=== PATIENT | female | born 1975 | race Caucasian/White ===

== ENCOUNTER 2024-02-29 14:53 | Emergency (ER) | payer BC, SELFPAY ==
[2024-02-29 15:12] VITALS: BP 133/76; PULSE 87; RESP 17; TEMP 36.7; O2SAT 100
--- NOTE | 2024-02-29 15:16 | ED_ITS ---
HPI - URI/Sore Throat General Chief Complaint: Upper Respiratory Infection Stated Complaint: sore throat Time Seen by Provider: 02/29/24 15:16 Source: patient, RN notes reviewed and old records reviewed Mode of arrival: ambulatory Limitations: no limitations and altered mental status History of Present Illness HPI Narrative: patient presents with complaints of sore throat for 10 days. Patient declines to say if she has been taking anything for her symptoms specifically, or just taking meloxicam as usual. She reports that she has not had a fever, over the past couple of days she reports that she has been more tired than usual and had slight headache. This is what made her decide to come in today. No drooling or stridor, she is able to manage own secretions. She denies any injury or trauma. She voices no other concerns or complaints at this time. Related Data Home Medications ?Medication ?Instructions ?Recorded ?Confirmed ?Last Taken ?Type albuterol sulfate 90 mcg/actuation inhalation 02/29/24 Unknown History aerosol inhaler azelastine 137 mcg (0.1 %) nasal intranasal 02/29/24 Unknown History spray baclofen 10 mg tablet mg 02/29/24 Unknown History drospirenone (contraceptive) 4 mg 02/29/24 Unknown History (28) tablet (Slynd) fluoxetine 20 mg tablet mg 02/29/24 Unknown History fluticasone 250 mcg-salmeterol 50 inhalation 02/29/24 Unknown History mcg/dose blistr powdr for inhalation (Wixela Inhub) fluticasone propionate 50 intranasal 02/29/24 Unknown History mcg/actuation nasal spray,suspension losartan 25 mg tablet mg 02/29/24 Unknown History meloxicam 7.5 mg tablet mg 02/29/24 Unknown History montelukast 10 mg tablet mg 02/29/24 Unknown History omeprazole 20 mg capsule,delayed mg 02/29/24 Unknown History release omeprazole 40 mg capsule,delayed mg 02/29/24 Unknown History release oxybutynin chloride 10 mg mg PO 02/29/24 Unknown History tablet,extended release 24 hr trazodone 50 mg tablet mg 02/29/24 Unknown History Allergies Allergy/AdvReac Type Severity Reaction Status Date / Time Sulfa (Sulfonamide Allergy Mild rash Verified 02/29/24 15:16 Antibiotics) Review of Systems Review of Systems: All systems reviewed & are unremarkable except as noted in HPI and below Constitutional: Constitutional: Reports as per HPI, Reports no additional co nstitutional complaints, Reports headache(s) and Reports lethargy ENT: Reports system reviewed and no additional complaints, except as documented and Reports sore throat Cardiovascular: Cardiovascular: Reports no additional cardiovascular complaints Respiratory: Respiratory: Reports no additional respiratory complaints Gastrointestinal: Gastrointestinal: Reports no additional gastrointestinal complaints PMFSH Comments At the time of my signature, I reviewed and agree with the nursing past medical, surgical, social, and family history. There is no relevant family history pertinent to the patient complaint. Exam Const: General: cooperative, no acute distress, alert and awake Orientation/consciousness: oriented to person, oriented to place and oriented to time HENMT: Head: normal to inspection Mouth: Yes moist mucous membranes Throat: posterior oropharynx abnormal erythema Resp: Effort & Inspection: normal respiratory effort and able to speak in complete sentences Auscultation: clear to auscultation bilaterally, no crackles, no rales, no rhonchi and no wheezes Cardio: Palpation: normal PMI Rate: regular rate Rhythm: regular rhythm Heart sounds: S1 normal heart sound present and S2 normal heart sound present Neuro: General: oriented to person, oriented to place and oriented to time Cranial nerves: Yes CN's II-XII intact bilaterally Psych: Appearance: grossly normal Thought process: Normal thought process present Insight: Good insight present (Psych) Judgement: Good judgement present (Psych) Course Course Level of Care: Express Care Visit Vital Signs Vital signs: Vital Signs Temperature 98.1 F 02/29/24 15:12 Pulse Rate 87 02/29/24 15:12 Respiratory Rate 17 02/29/24 15:12 Blood Pressure 133/76 02/29/24 15:12 Pulse Oximetry 100 02/29/24 15:12 Oxygen Delivery Room Air 02/29/24 15:12 Temperature 98.1 F 02/29/24 15:12 Pulse Rate 87 02/29/24 15:12 Respiratory Rate 17 02/29/24 15:12 Blood Pressure 133/76 02/29/24 15:12 Pulse Oximetry 100 02/29/24 15:12 Oxygen Delivery Room Air 02/29/24 15:12 Reviewed MDM - URI/Sore Throat MDM Narrative Medical decision making narrative: Her positive rapid strep. Patient nontoxic appearing. Stable for discharge home on p.o. antibiotic therapy. Discharge instructions reviewed with patient, as well as provided in writing per nursing staff. The instructions also include specific and strict return/GO TO THE ER as well as f/u information. All questions have been answered, and the patient deny any further questions with discharge and discharge plan. Some parts of this dictation were generated by voice recognition software and may contain typographical and/or grammatical inaccuracies. Differential Diagnosis Differential diagnosis: Likely upper respiratory infection, otitis media, sinusitis, viral infection, influenza and pharyngitis Medical Records Attestation: I reviewed the patient's medical records. Lab Data Attestation: I reviewed the patient's lab results. Discharge Plan Discharge Clinical Impression: Pharyngitis Qualifiers: Pharyngitis/tonsillitis etiology: streptococcus Qualified Code(s): J02.0 - Streptococcal pharyngitis Patient Disposition: Home, Self-Care Condition: Stable Instructions: Antibiotic Form, Strep Throat (ED) Additional Instructions: Take medications as prescribed. Follow with primary care provider. Emergency department for new or worse symptoms Patient Language: Prydeinig Prescriptions: New penicillin V potassium 500 mg tablet 500 mg PO Q12H 10 Days Qty: 20 0RF No Action fluticasone propion-salmeterol [Wixela Inhub] 250-50 mcg/dose blister with device INHALATION trazodone 50 mg tablet oxybutynin chloride 10 mg tablet extended release 24hr PO omeprazole 40 mg capsule,delayed release(DR/EC) meloxicam 7.5 mg tablet baclofen 10 mg tablet fluoxetine 20 mg tablet losartan 25 mg tablet omeprazole 20 mg capsule,delayed release(DR/EC) montelukast 10 mg tablet azelastine 137 mcg (0.1 %) spray,non-aerosol INTRANASAL albuterol sulfate 90 mcg/actuation HFA aerosol inhaler INHALATION fluticasone propionate 50 mcg/actuation spray,suspension INTRANASAL Slynd 4 mg (28) tablet Follow-up/Referrals: Neel,Kathrin Carranza MD [Primary Care Provider] - 2 Weeks Stand Alone Forms: Work/School Release IP Time of Disposition: 15:22
[2024-02-29 15:22] LABS: EDSTREPNEGPOS1 Positive (Negative)
== END 2024-02-29 15:23 | disposition home or self-care (01) ==
PROVIDERS: Emergency Provider Nurse Practitioner Family; PCP Family Medicine
DX: J02.0 Streptococcal pharyngitis (principal); I10 Essential (primary) hypertension; E78.00 Pure hypercholesterolemia, unspecified; J45.909 Unspecified asthma, uncomplicated; K21.9 Gastro-esophageal reflux disease without esophagitis; M19.90 Unspecified osteoarthritis, unspecified site
CPT/HCPCS: 87880; 99213; G0463

== ENCOUNTER 2024-03-08 10:54 | Emergency (ER) | payer BC, SELFPAY ==
[2024-03-08 11:09] VITALS: BP 133/65; PULSE 84; RESP 18; TEMP 36.4; O2SAT 100
--- NOTE | 2024-03-08 11:15 | ED.URI ---
HPI - URI/Sore Throat General Chief Complaint: Upper Respiratory Infection Stated Complaint: congestion Time Seen by Provider: 03/08/24 11:15 Source: patient, RN notes reviewed and old records reviewed Mode of arrival: ambulatory Limitations: no limitations History of Present Illness HPI Narrative: Patient in the process of being treated for strep throat presents with complaints of worsening productive cough, lack of energy, and just feeling worse. She reports that although her throat does not hurt as badly,She feels worse in just about every other way. She does report that household member was diagnosed with atypical pneumonia a few days ago Related Data Home Medications ?Medication ?Instructions ?Recorded ?Confirmed ?Last Taken ?Type albuterol sulfate 90 mcg/actuation inhalation 02/29/24 Unknown History aerosol inhaler azelastine 137 mcg (0.1 %) nasal intranasal 02/29/24 Unknown History spray baclofen 10 mg tablet mg 02/29/24 Unknown History drospirenone (contraceptive) 4 mg 02/29/24 Unknown History (28) tablet (Slynd) fluoxetine 20 mg tablet mg 02/29/24 Unknown History fluticasone propionate 50 intranasal 02/29/24 Unknown History mcg/actuation nasal spray,suspension losartan 25 mg tablet mg 02/29/24 Unknown History meloxicam 7.5 mg tablet mg 02/29/24 Unknown History montelukast 10 mg tablet mg 02/29/24 Unknown History omeprazole 40 mg capsule,delayed mg 02/29/24 Unknown History release oxybutynin chloride 10 mg mg PO 02/29/24 Unknown History tablet,extended release 24 hr trazodone 50 mg tablet mg 02/29/24 Unknown History Allergies Allergy/AdvReac Type Severity Reaction Status Date / Time Sulfa (Sulfonamide Allergy Mild rash Verified 03/08/24 11:26 Antibiotics) Review of Systems Review of Systems: All systems reviewed & are unremarkable except as noted in HPI and below Constitutional: Constitutional: Reports no additional constitutional complaints, Reports fever(s), Reports headache(s) and Reports lethargy ENT: Reports system reviewed and no additional complaints, except as documented and Reports sore throat (Improving) Cardiovascular: Cardiovascular: Reports no additional cardiovascular complaints Respiratory: Respiratory: Reports no additional respiratory complaints, Reports change in phlegm color, Reports chest congestion and Reports cough Gastrointestinal: Gastrointestinal: Reports no additional gastrointestinal complaints PMFSH Comments At the time of my signature, I reviewed and agree with the nursing past medical, surgical, social, and family history. There is no relevant family history pertinent to the patient complaint. Exam Const: General: cooperative, no acute distress, alert and awake Orientation/consciousness: oriented to person, oriented to place and oriented to time HENMT: Head: normal to inspection Ears: TM's normal bilaterally Mouth: Yes moist mucous membranes Throat: posterior oropharynx abnormal erythema Resp: Effort & Inspection: normal respiratory effort and able to speak in complete sentences Auscultation: clear to auscultation bilaterally, no crackles, no rales, no rhonchi and no wheezes Cardio: Palpation: normal PMI Rate: regular rate Rhythm: regular rhythm Heart sounds: S1 normal heart sound present and S2 normal heart sound present Neuro: General: oriented to person, oriented to place and oriented to time Cranial nerves: Yes CN's II-XII intact bilaterally Psych: Appearance: grossly normal Thought process: Normal thought process present Insight: Good insight present (Psych) Judgement: Good judgement present (Psych) Course Course Level of Care: Express Care Visit Vital Signs Vital signs: Vital Signs Temperature 97.6 F 03/08/24 11:09 Pulse Rate 84 03/08/24 11:09 Respiratory Rate 18 03/08/24 11:09 Blood Pressure 133/65 03/08/24 11:09 Pulse Oximetry 100 03/08/24 11:09 Oxygen Delivery Room Air 03/08/24 11:09 Temperature 97.6 F 03/08/24 11:09 Pulse Rate 84 03/08/24 11:09 Respiratory Rate 18 03/08/24 11:09 Blood Pressure 133/65 03/08/24 11:09 Pulse Oximetry 100 03/08/24 11:09 Oxygen Delivery Room Air 03/08/24 11:09 Reviewed MDM - URI/Sore Throat MDM Narrative Medical decision making narrative: patient nontoxic appearing. Stable for discharge home on p.o. antibiotic therapy. She is already being treated for strep, add azithromycin to cover atypical pneumonia. Other member of household has this, patient now with symptoms Discharge instructions reviewed with patient, as well as provided in writing per nursing staff. The instructions also include specific and strict return/GO TO THE ER as well as f/u information. All questions have been answered, and the patient deny any further questions with discharge and discharge plan. Some parts of this dictation were generated by voice recognition software and may contain typographical and/or grammatical inaccuracies. Differential Diagnosis Differential diagnosis: Likely upper respiratory infection, otitis media, sinusitis, viral infection, bronchitis, influenza and pharyngitis Medical Records Attestation: I reviewed the patient's medical records. Lab Data Attestation: I reviewed the patient's lab results. Discharge Plan Discharge Clinical Impression: Atypical pneumonia Patient Disposition: Home, Self-Care Condition: Stable Instructions: Antibiotic Form, Community Acquired Pneumonia (ED) Additional Instructions: Take medications as prescribed. Follow with primary care provider. Emergency department for new or worse symptoms Patient Language: Dominican Prescriptions: New azithromycin 250 mg tablet See Rx Instructions PO .COMPLEX Qty: 6 0RF Rx Instructions: For 250 mg dose pack: take 500 mg today (day 1), then 250 mg for 4 days (days 2-5) prednisone 50 mg tablet 50 mg PO DAILY Qty: 5 0RF No Action trazodone 50 mg tablet oxybutynin chloride 10 mg tablet extended release 24hr PO omeprazole 40 mg capsule,delayed release(DR/EC) meloxicam 7.5 mg tablet baclofen 10 mg tablet fluoxetine 20 mg tablet losartan 25 mg tablet montelukast 10 mg tablet azelastine 137 mcg (0.1 %) spray,non-aerosol INTRANASAL albuterol sulfate 90 mcg/actuation HFA aerosol inhaler INHALATION fluticasone propionate 50 mcg/actuation spray,suspension INTRANASAL Slynd 4 mg (28) tablet penicillin V potassium 500 mg tablet 500 mg PO Q12H 10 Days Qty: 20 0RF Follow-up/Referrals: Neel,Kathrin Carranza MD [Primary Care Provider] - 2 Weeks Time of Disposition: 11:33
== END 2024-03-08 11:36 | disposition home or self-care (01) ==
PROVIDERS: Emergency Provider Nurse Practitioner Family; PCP Family Medicine
DX: J18.9 Pneumonia, unspecified organism (principal)
CPT/HCPCS: 99213; G0463

== ENCOUNTER 2024-04-23 08:05 | Emergency (ER) | payer BC, SELFPAY ==
--- OUTSIDE RECORDS SUMMARY | 2024-04-23 08:19 | XMS_ITS | Data Portability ---
Author Organization [employer] , [facility] Address [address] [place] [address] Care Team Providers Care Operational Trainer Name Role Phone YASMINE TURNER Primary Care Provider [phone] Assessment No assessment recorded. Plan of Treatment Reminders Order Date Submit Date Provider Last Modified By Organization Details Last Modified Time Details Appointments None record ed. Lab FSH (folli joanna-st imulat ing hormon e), serum 2022 023 [facility], [address] [place], [address], 3 06:20:05 estrad iol, serum 2022 023 [facility], [address] [place], [address], 3 06:20:05 biopsy , tissue - endome trial biopsy 2022 023 [facility], [address] [place], [address], 3 18:58:10 HPV E6+E7 mRNA, qualit ative PCR, cervix 2023 024 [facility], [address] [place] [address], [address], 4 15:26:12 pap, LB 2023 024 [facility], [address] [place], [address], 4 09:55:23 Referral None record ed. Procedures None record ed. Surgeries None record ed. Imaging US, transv aginal 2022 023 NESHA Not available 3 18:22:07 MAMMO, screen ing, digita l, bilate ral [facility], [address] [place], [address], 15:30:54 Medication Orders Veronica 24 Fe 1 mg-20 mcg (24)/7 5 mg (4) tablet 2022 023 kevin [facility], [facility], [place], [address], 3 11:05:45 Slynd 4 mg (28) tablet 2022 023 [facility], [address] [place] [address], [address], 3 10:55:54 Slynd 4 mg (28) tablet 2023 024 [facility], [facility], [place], [address], 4 12:02:23 Patient TargetsNo targets recorded. Patient Instructions Encounter Date Encounter Id Patient Instructions Last Modified By Organization Details Last Modified Time 10/04/2022 [id number] endometrial biopsy information [email or web address] Not available 10/04/2022 10:45:21 12/02/2023 [id number] body mass index: care instructions Not available 12/02/2023 12:02:20 A healthy lifestyle: care instructions Not available 12/02/2023 12:02:21 substance use disorder: care instructions Not available 12/02/2023 12:02:21 calcium and vitamin D combination Not available 12/02/2023 12:02:20 depression (wome n only) Not available 12/02/2023 12:02:21 eating healthy foods: care instructions Not available 12/02/2023 12:02:21 exercise program : getting started Not available 12/02/2023 12:02:21 mammogram: about this test Not available 12/02/2023 12:02:21 control counseling Not available 12/02/2023 12:02:21 Reason for Referral None Reported. Results Created Date Observation Date Name Description Value Unit Range Abnormal Flag Note LastModifiedBy Organization Detail LastModifiedTime 08/07/1908/06/2022 FSH FSH 54.0 mIU/m L normal Refer ence Range Folli cular Phase 2.5-1 0.2 Mid-c ycle Peak 3.1-1 7.7 Lutea l Phase 1.5- 9.1 Postm enopa usal 23.0- 116.3 Not Available [employer] [facility] [address] [place], [address], 08/06/2022 06:20:05 08/07/19 23 08/06/2022 ESTRA DIOL estradiol 19 pg/mL normal Refer ence Range Folli cular Phase : 19-14 4 Mid-C ycle: 64-35 7 Lutea l Phase : 56-21 4 Postm enopa usal: < or = 31 Refer ence range estab lishe d on post- puber genesis patie nt popul ation . No pre-p ubert al refer ence range estab lishe d using this assay . For any patie nts for whom low Estra diol level s are antic ipate d (e.g. males , pre-p ubert al child sharmaine and hypog onada l/pos t-men opaus al femal es), the [facility] Estra diol, Ultra sensi tive, LCMSM S assay is recom dionte d (orde r code 06843 ). Pleas e note: patie nts being treat ed with the drug fulve stran t (Fasl odex( R)) have demon strat ed signi fican t inter feren ce in immun oassa y metho ds for estra diol measu remen t. The cross react ivity could lead to false ly eleva sosa estra diol test resul ts leadi ng to an inapp ropri ate clini sivan asses sment of estro gen statu s. [facility] order code 41904 -Estr adiol , Ultra sensi tive LC/MS /MS demon strat es negli gible cross react ivity with fulve stran t. NO COLLE CTION DATE RECEI KIRA. WE HAVE USED THE DATE THE SPECI MEN WAS RECEI KIRA BY THIS LABOR ATORY THE COLLE CTION DATE. IF THIS IS INCOR RECT, PLEAS E CONTA CT CLIEN T SERVI STEPHEN. PHONE NUMBE R: [phone] Not Available [employer] [place] [address] [place], [address], 08/06/2022 06:20:05 10/08/1910/07/2022 TISSU E PATHO LOGY clinical information Postm enopa usal bleed ing Not Available [employer] [address] [place] [address] [place], [address], 10/07/2022 18:58:10 10/08/19 23 10/07/2022 TISSU E PATHO LOGY pathologist Amy sanders MD Board Certi fied in Anato vasu Patho logy and Clini sivan Patho logy [phone] (elec troni c signa ture) Not Available [employer] [place] [address] [place], [address], 10/07/2022 18:58:10 10/08/1910/07/2022 TISSU E PATHO LOGY A source Endom etriu m, biops y Not Available [employer] [address] [place] [address] [place], [address], 10/07/2022 18:58:10 10/08/19 23 10/07/2022 TISSU E PATHO LOGY A gross description Speci men is recei kira in 10% neutr al buffe red forma bigg, label ed with multi ple patie nt ident ifier s and consi sts of multi ple fragm ents of soft tissu e aggre gatin g to 2.5 x 1.5 x 0.2 cm, irreg ular in shape and mathis-b rown in color . The speci men is entir oswaldo submi tted in one casse tte. Gross exam( s) perfo rmed at: [facility] [place] [address] [facility] [address], [place] [address] Labor atory Direc tor: GAIL Schmitt MD Not Available [employer] [place] [address] [place], [address], 10/07/2022 18:58:10 10/08/19 23 10/07/2022 TISSU E PATHO LOGY A diagnosis Mildl y and focal ly disor dered proli ferat andrews endom etriu m. Not Available [employer] [facility] [address] [place], [address], 10/07/2022 18:58:10 10/08/19 23 10/07/2022 TISSU E PATHO LOGY A comment No evide nce of polyp , hyper plasi a or malig maggi in the speci men submi tted. Clini sivan corre latio n/fol low-u p is recom dionte d. NO COLLE CTION DATE RECEI KIRA. WE HAVE USED THE DATE THE SPECI MEN WAS RECEI KIRA BY THIS LABOR ATORY THE COLLE CTION DATE. IF THIS IS INCOR RECT, PLEAS E CONTA CT CLIEN T SERVI STEPHEN. PHONE NUMBE R: [phone] Not Available [employer] [facility] [address] [place], [address], 10/07/2022 18:58:10 12/02/19 24 12/05/2023 HPV HIGH RISK HPV high risk Negati ve negati ve normal The HPV High Risk assay is inten ded for use as co-te sting with cytol ogy and not as a subst itute for regul ar cervi sivan cytol ogy scree samantha. This assay is not inten ded for use as a scree samantha devic e for women under age 30 with scotty l cervi sivan cytol ogy. Not Available [facility] [address] [place], [address], 12/05/2023 15:26:11 12/02/19 24 12/07/2023 THINP REP TIS PAP clinical information: normal None given Not Available [employer] [place] [address] [place], [address], 12/07/2023 09:55:23 12/02/19 24 12/07/2023 THINP REP TIS PAP LMP: normal NONE GIVEN Not Available [facility] [place] [address] [place], [address], 12/07/2023 09:55:23 12/02/19 24 12/07/2023 THINP REP TIS PAP prev. Pap: normal NONE GIVEN Not Available [facility] [place] [address] [address] [place], [address], 12/07/2023 09:55:23 12/02/19 24 12/07/2023 THINP REP TIS PAP prev. BX: normal NONE GIVEN Not Available [place] [address] [address] [place], [address], 12/07/2023 09:55:23 12/02/19 24 12/07/2023 THINP REP TIS PAP source: normal Cervi x Not Available [employer] [place] [address] [place], [address], 12/07/2023 09:55:23 12/02/19 24 12/07/2023 THINP REP TIS PAP statement of adequacy: normal Satis facto ry for evalu ation . Endoc ervic al/tr ansfo rmati on zone compo nent prese nt. Age and/o r menst rual statu s not provi ded Not Available [place] [address] [place], [address], 12/07/2023 09:55:23 12/02/1912/07/2023 THINP REP TIS PAP interpretati on/result: normal Cytol ogy Resul ts: Negat andrews for intra epith elial lesio n or malig maggi . Not Available [place] [address] [place], [address], 12/07/2023 09:55:23 12/02/19 24 12/07/2023 THINP REP TIS PAP comment: normal This Pap test has been evalu ated with compu king techn ology . Not Available [place] [address] [place], [address], 12/07/2023 09:55:23 12/02/1912/07/2023 THINP REP TIS PAP cytotechnolo gist: normal PCM, CT( CP) CT Scree samantha Locat ion: [place] [address] [place] [address] Not Available [place] [address] [place], [address], 12/07/2023 09:55:23 12/02/1912/07/2023 THINP REP TIS PAP comment EXPLA NATOR Y NOTE: The Pap is a scree samantha test for cervi sivan cance r. It is not a diagn ostic test and is subje ct to false negat andrews and false posit andrews resul ts. It is most relia ble when a satis facto ry sampl e, regul margarita obtai marcella, is submi tted with relev ant clini sivan findi ngs and histo ry, and when the Pap resul t is evalu ated along with histo yas and curre nt clini sivan infor matio n. Not Available [address] [address] [place], [address], 12/07/2023 09:55:23 11/04/19 23 11/03/2022 US, trans vagin al No observ ation record ed. [email or web address] [address], [place], [address], 11/04/2022 10:16:23 03/09/20 24 03/09/2024 MAMMO , scree samantha, tomos ynthe sis, bilat eral This is a summar y report . The comple te report is availa ble in the patien t's medica l record . If you cannot access the medica l record , please contac t the sendin g organi [facility] for a detail ed fax or copy. [facility] [address] [place] [address] [phone] Examin ation: Screen ing bilate ral mammog megan Exam Date: 2023 12:56 PM Access ion: [id number] Clinic al histor y: Routin e screen ing. Family histor y of breast cancer in her grandm other. Compar kayleen: 2022, 2020 Techni que: Digita l screen ing mammog patrick of both breast s was perfor med. Breast tomosy nthesi s acquis itions were obtain ed and review ed. This study was read with the assist ance of a arGEN-X er-aid ed detect ion system . Tissue densit y: There are scatte red areas of fibrog landul ar densit y. Findin gs: No suspic ious masses , malign ant appear ing calcif icatio ns, skin thicke samantha or other abnorm alitie s are presen t. No signif icant change from the prior exam. IMPRES CHASTITY: No suspic ious mammog raphic findin gs. Recomm endati on: 1. Routin e Screen ing, Bilate ral Assess ment: ACR BI-RAD S 1 - NEGATI VE Ordere d By: ANNITA BRAUN Electr onical ly Signed By: David Cardozo MD on 2023 1:23 PM Interp reted By: David Cardozo MD, 2023 1:13 PM [email or web address], [address], 03/10/2024 14:23:18 Result Notes None recorded. Procedures Surgical History Date Name Laterality Status Provider Name and Address Organization Details Recorded Time 03/09/20 Most Recent Mammogram completed DULCE RIVAS, [employer] [address] [place], [address], [facility] 03/10/2024 14:23:03 10/27/19 Date of Last Colonoscopy completed Sandrita Giles [facility] 12/02/2023 11:34:58 10/05/19 Endometrial Biopsy completed ABDULAZIZ MARIA DO [address] [place], [address], [facility] - [facility] 10/04/2022 10:45:16 11/06/19 Date of Last [facility] 03/09/2022 10:52:57 removal of pilonidal cyst completed Radha [place] [facility] 03/09/2022 10:51:42 insertion of ureteral stent with ureterotomy completed Gabby Hdz [facility] 03/10/2022 09:26:00 Imaging Results Imaging Date Name Status LastModified by Organization Details LastModified Time 11/03/2022 US, transvaginal completed [email or web address], [place], [address], 11/04/2022 10:16:23 03/09/2024 MAMMO, screening, tomosynthesis, bilateral completed [email or web address], [address], 03/10/2024 14:23:18 Procedure Notes None recorded. Medical Equipment None Reported. Allergies Allergen ID Allergen Name Allergen Category Reaction Reaction Severity Criticality Documentation Date Start Date Code Code System Note Provider Name and Address Organization Details Recorded Time 227168 Substance with sulfonami de structure and antibacte rial mechanism of action (substanc e) medicatio n Not available Not available Not available 01/02/20212019 68484 8003 SNOMED Sever ity: Moder ate; Not Available Not Available Not Available 677203 house dust allergeni c extract environme nt,medica tion Not available Not available Not available 08/03/2022 13748 9 RxNorm Not Available Not Available Not Available 596744 cat dander environme nt Not available Not available Not available 08/03/2022 81129 UNK Not Available Not Available Not Available 445219 Canis lupus familiari s extract environme nt Not available Not available Not available 08/03/2022 70105 4 RxNorm Not Available Not Available Not Available 347219 mold extract environme nt Not available Not available Not available 08/03/2022 85124 8 RxNorm Not Available Not Available Not Available Medications Name Sig Start Date Stop Date Status Note LastModified by Organization Details LastModified Time hydrocort isone 20mg supp Place ONE intravag inally twice WEEKLY active Not Available Not Available No t Available trazodone 50 mg tablet active Not Available Not Available Not Available cetirizin e 10 mg tablet active Not Available Not Available Not Available oxybutyni n chloride ER 10 mg tablet,ex tended release 24 hr active Not Available Not Available Not Available fluconazo le 150 mg tablet 03/10 completed Not Available Not Available Not Available benzonata te 200 mg capsule TAKE 1 CAPSULE BY MOUTH THREE TIMES DAILY UNTIL DIRECTED TO STOP 03/10 completed Not Available Not Available Not Available hydrocodo ne 5 mg-acetam inophen 325 mg tablet TAKE 1 TABLET BY MOUTH EVERY 4 HOURS NEEDED FOR ACUTE PAIN 03/10 completed Not Available Not Available Not Available fluconazo le 200 mg tablet 11/03 completed Not Available Not Available Not Available prednison e 20 mg tablet TAKE 3 TABLETS BY MOUTH EVERY MORNING FOR 3 DAYS THEN TAKE 2 TABLETS EVERY MORNING FOR 3 DAYS THEN TAKE 1 TABLET EVERY MORNING FOR 3 DAYS 03/10 completed Not Available Not Available Not Available omeprazol e 40 mg capsule,d elayed release active Not Available Not Available Not Available tramadol 50 mg tablet active Not Available Not Available Not Available ondansetr on 8 mg disintegr ating tablet DISSOLVE 1 TABLET ON THE TONGUE THREE TIMES DAILY FOR 2 DAYS NEEDED 08/03 completed Not Available Not Available Not Available nystatin- triamcino lone 100,000 unit/gram -0.1 % topical ointment apply to the affected area(s) by topical route 2 times per day 12/31 completed nystatin -triamci nolone 100,000- 0.1 unit/gra m-% Topical Ointment RxNorm: 0199656 Allow Substitu tion: True Refill Denied: No Edited by: laura hendrickson([place]t [place], Kelli ) on 01/01/20 Stopped by: laura hendrickson(Dmitriynt on, Kelli ) on 01/01/20 Not Available Not Available Not Available meloxicam 7.5 mg tablet active Not Available Not Available Not Available tamsulosi n 0.4 mg capsule 08/03 completed Not Available Not Available Not Available baclofen 10 mg tablet active Not Available Not Available Not Available cephalexi n 500 mg capsule 03/10 completed Not Available Not Available Not Available pantopraz ole 40 mg tablet,de layed release 12/01 completed Not Available Not Available Not Available Prozac 20 mg capsule take 1 capsule (20 mg) by oral route 2 times per day in the morning and at noon 03/10 completed PROzac 20 mg oral capsule RxNorm: 559444 Allow Substitu tion: False Refill Denied: No Refill DateOccu rred: 01/01/20 Edited by: marcelo ramírez(Nancy Rodríguez ) on 01/01/20 21 Stopped by: marcelo ramírez(Nancy Rodríguez ) on Not Available Not Available Not Available fluoxetin e 20 mg tablet active Not Available Not Available Not Available losartan 25 mg tablet take 1 tablet (25 mg) by oral route 2 times per day active Not Available Not Available No t Available oxybutyni n chloride ER 5 mg tablet,ex tended release 24 hr 03/10 completed Not Available Not Available Not Available omeprazol e 20 mg capsule,d elayed release 12/01 completed Not Available Not Available Not Available monteluka st 10 mg tablet active Not Available Not Available Not Available amoxicill in 400 mg/5 mL oral suspensio n SHAKE LIQUID AND TAKE 6.5 ML BY MOUTH TWICE DAILY FOR 10 DAYS. DISCARD REMAINDE R 12/01 completed Not Available Not Available Not Available azelastin e 137 mcg (0.1 %) nasal spray USE 2 SPRAYS IN EACH NOSTRIL TWICE DAILY active Not Available Not Available No t Available azithromy courtney 200 mg/5 mL oral suspensio n 12/01 completed Not Available Not Available Not Available albuterol sulfate HFA 90 mcg/actua tion aerosol inhaler active Not Available Not Available Not Available ondansetr on 4 mg disintegr ating tablet active Not Available Not Available Not Available cefdinir 300 mg capsule TAKE 2 CAPSULES BY MOUTH EVERY DAY X 10 DAYS. TAKE A PROBIOTI C WITH THIS PRESCRIP TION. 03/10 completed Not Available Not Available Not Available fluticaso ne propionat e 50 mcg/actua tion nasal spray,joseph pension USE 1 SPRAY NASALLY ONCE DAILY active Not Available Not Available No t Available amoxicill in 875 mg-potass ium clavulana te 125 mg tablet TAKE 1 TABLET BY MOUTH EVERY 12 HOURS FOR 7 DAYS 08/03 completed Not Available Not Available Not Available nabumeton e 500 mg tablet 08/03 completed Not Available Not Available Not Available amoxicill in 500 mg-potass ium clavulana te 125 mg tablet TAKE 1 TABLET BY MOUTH EVERY 12 HOURS FOR 7 DAYS OR UNTIL DIRECTED TO STOP. TAKE WITH FOOD 11/03 completed Not Available Not Available Not Available epinastin e 0.05 % eye drops active Not Available Not Available No t Available nitrofura ntoin monohydra te/macroc rystals 100 mg capsule 08/03 completed Not Available Not Available Not Available cefdinir 250 mg/5 mL oral suspensio n SHAKE LIQUID AND TAKE 7.5 ML BY MOUTH TWICE DAILY FOR 7 DAYS. DISCARD REMAINDE R 12/01 completed Not Available Not Available Not Available Flonase 11/03 completed Flonase RxNorm: 70727 Allow Substitu tion: False Refill Denied: No Refill DateOccu rred: 11/05/19 Edited by: Kelli Holloway ) on 01/01/20 Stopped by: laura hendrickson(Thornt on, Kelli ) on Not Available Not Available Not Available baclofen 03/10 completed baclofen RxNorm: 1292 Allow Substitu tion: False Refill Denied: No Refill DateOccu rred: 11/05/19 Edited by: laura hendrickson(Thornt on, Kelli ) on 01/01/20 Stopped by: laura hendrickson(Thornt on, Kelli ) on Not Available Not Available Not Available albuterol sulfate 03/10 completed albutero l sulfate RxNorm: 648372 Allow Substitu tion: False Refill Denied: No Refill DateOccu rred: 11/05/19 Edited by: laura hendrickson(Thornt on, Kelli ) on 01/01/20 Stopped by: laura hendrickson(Thornt on, Kelli ) on Not Available Not Available Not Available monteluka st 03/10 completed monteluk ast RxNorm: 138837 Allow Substitu tion: False Refill Denied: No Refill DateOccu rred: 11/05/19 Edited by: laura hendrickson(Thornt on, Kelli ) on 01/01/20 Stopped by: laura hendrickson(Thornt on, Kelli ) on Not Available Not Available Not Available nabumeton e 03/10 completed nabumeto ne RxNorm: 747129 Allow Substitu tion: False Refill Denied: No Refill DateOccu rred: 11/05/19 Edited by: laura hendrickson(Thornt on, Kelli ) on 01/01/20 Stopped by: laura hendrickson(Thornt on, Kelli ) on Not Available Not Available Not Available Zyrtec 03/10 completed ZyrTEC RxNorm: 50932 Allow Substitu tion: False Refill Denied: No Refill DateOccu rred: 11/05/19 Edited by: laura hendrickson(Thornt on, Kelli ) on 01/01/20 Stopped by: laura hendrickson(Thornt on, Kelli ) on Not Available Not Available Not Available Protonix 08/03 completed Protonix RxNorm: 425216 Allow Substitu tion: False Refill Denied: No Refill DateOccu rred: 11/05/19 Edited by: laura hendrickson(Thornt on, Kelli ) on 01/01/20 Stopped by: laura hendrickson(Thornt on, Kelli ) on Not Available Not Available Not Available Trazodone 03/10 completed traZODon e RxNorm: 47682 Allow Substitu tion: False Refill Denied: No Refill DateOccu rred: 11/05/19 Edited by: laura hendrickson(Thornt on, Kelli ) on 01/01/20 Stopped by: laura hendrickson(Thornt on, Kelli ) on Not Available Not Available Not Available Advair HFA 115 mcg-21 mcg/actua tion aerosol inhaler INHALE 2 PUFFS BY MOUTH TWICE DAILY. USE WITH SPACER active Not Available Not Available No t Available azelastin e 205.5 mcg (0.15 %) nasal spray spray 1 spray (205.5 mcg) in each nostril by intranas al route 2 timesper day 08/03 completed azelasti ne 0.15 % (205.5 mcg) Intranas al [place], Non-Aero jose RxNorm: 1557242 Allow Substitu tion: False Refill Denied: No Refill DateOccu rred: 11/05/19 Edited by: laura hendrickson(Thornt on, Kelli ) on 01/01/20 Stopped by: laura hendrickson(Thornt on, Kelli ) on Not Available Not Available Not Available sodium,po tassium,m ag sulfates 17.5 gram-3.13 gram-1.6 gram oral soln TAKE 177ML BY MOUTH EVERY 12 HOURS PER GI INSCTRUC TIONS 12/01 completed Not Available Not Available Not Available Auvi-Q 0.3 mg/0.3 mL injection , auto-inje ctor USE DIRECTED 03/10 completed Not Available Not Available Not Available Blisovi 24 Fe 1 mg-20 mcg (24)/75 mg (4) tablet TAKE 1 TABLET DAILY 11/03 completed Not Available Not Available Not Available Wixela Inhub 250 mcg-50 mcg/dose powder for inhalatio n active Not Available Not Available Not Available Slynd 4 mg (28) tablet Take 1 tablet every day by oral route. 2023 active Not Available Not Available Not Avai lable AirDuo Digihaler 12/31 completed [employer] RespiCli ck RxNorm: 6121166 Allow Substitu tion: False Refill Denied: No Refill DateOccu rred: 11/05/19 Edited by: laura hendrickson(Thornt on, Kelli ) on 01/01/20 Stopped by: laura hendrickson(Thornt on, Kelli ) on 01/01/20 Not Available Not Available Not Available Wegovy 0.25 mg/0.5 mL subcutane ous pen injector ADMINIST ER 0.25 MG UNDER THE SKIN 1 TIME A WEEK FOR 56 DAYS FOR WEIGHT LOSS 12/01 completed Not Available Not Available Not Available Wegovy 0.5 mg/0.5 mL subcutane ous pen injector ADMINIST ER 0.5 MG UNDER THE SKIN 1 TIME A WEEK 12/01 completed Not Available Not Available Not Available Vitals Date Recorded Body height Body mass index (BMI) Body weight Body temperature Systolic blood pressure Diastolic blood pressure Provider Name and Address Organization Details Last Updated DateTime 165.1 cm 42.3 kg/m2 120675. 46 g 97.7 [degF] 115 mm[Hg] 70 mm[Hg] Ofelia Yeh [facility] IV 3 15:26:51 Date Recorded Body height Body mass index (BMI) Body weight Body temperature Systolic blood pressure Diastolic blood pressure Provider Name and Address Organization Details Last Updated DateTime 165.1 cm 42.3 kg/m2 499767. 9 g 97 [degF] 120 mm[Hg] 70 mm[Hg] Sandrita Giles [employer] IV 3 10:08:13 Date Recorded Body height Body mass index (BMI) Body weight Systolic blood pressure Diastolic blood pressure Provider Name and Address Organization Details Last Updated DateTime 11/03/2022 165.1 cm 42.3 kg/m2 496647. 46 g 130 mm[Hg] 80 mm[Hg] Gabby Chenjessica [employer] [facility] IV 3 11:08:54 Date Recorded Body height Body mass index (BMI) Body weight Systolic blood pressure Diastolic blood pressure Provider Name and Address Organization Details Last Updated DateTime 11/09/2022 165.1 cm 42 kg/m2 074207.4 3 g 122 mm[Hg] 78 mm[Hg] Mariela Powell [employer] IV 3 10:19:27 Date Recorded Body height Body mass index (BMI) Body weight Body temperature Systolic blood pressure Diastolic blood pressure Provider Name and Address Organization Details Last Updated DateTime 4 165.1 cm 43.4 kg/m2 392052. 89 g 95 [degF] 140 mm[Hg] 80 mm[Hg] Sandrita Giles [employer] 4 11:40:40 Social History Question Answer Notes LastModified by Organizat ion Details LastModified Time Tobacco Smoking Status Former Smoker Gabby Wilder null, [employer] 03/10/2022 09:24:57 What Is Your Level Of Alcohol Consumption? Occasional Information not available 03/10/2022 How Many Times Per Week Do You Consume Alcohol? Less Than 1 Time Per Week Information not available 12/02/2023 How Many Years Have You Consumed Alcohol? 27 Information not available 08/03/2022 Are You Blind Or Do You Have Difficulty Seeing? No [email or web address] Information not available 08/03/2022 Are You Deaf Or Do You Have Serious Difficulty Hearing? No Information not available 08/03/2022 What Type Of Diet Are You Following? GLUTENFREE Information not available 03/10/2022 Do You Or Have You Ever Used E-cigarettes Or Vape? Never Used Electronic Cigarettes [email or web address] Information not available 08/03/2022 When Did You Quit Smoking? 11-15yearssinc elastcigarette [email or web address] Information not available 08/03/2022 How Many Children Do You Have? 0 Information not available 08/03/2022 What Is Your Relationship Status? [email or web address] Information not available 08/03/2022 Are You Sexually Active? No Information not available 03/10/2022 How Much Tobacco Do You Smoke? 1 PPW Information not available 12/02/2023 Do You Use Any Illicit Or Recreational Drugs? No [email or web address] Information not available 08/03/2022 How Many Years Have You Smoked Tobacco? 18 Information not available 12/02/2023 Do You Or Have You Ever Used Any Other Forms Of Tobacco Or Nicotine? No [email or web address] Information not available 08/03/2022 Sex: Unknown Functional Status Question Answer Note LastModified by Organizat ion Details LastModified Time What is your exercise level? Occasional Information not available 08/03/2022 Mental Status None recorded. Family History Relationship Description Onset Age of this Age Resolved Age Notes LastModified by Organization Details LastModified Time Father No current problems or disability [email or web address] Not available 10/13 10:21:03 Mother No current problems or disability [email or web address] Not available 10/13 10:21:03 Medical History Condition Response High Blood Pressure Y Depression Y Anxiety Disorder N Arthritis Y Seasonal allergies Y IBS (Irritable Bowel Syndrome) Y Headaches/migraines Y GERD (reflux) Y Asthma Y Chicken Pox Y Gynecological History Statement/Question Response Date of Last Colonoscopy 10/27/2023 Flow Moderate Frequency of Cycle (Q days) 28 Date of LMP 10/20/2022 Most Recent Bone Density Date of Last Pap Smear 11/06/2019 Duration of Flow (days) 5 Most Recent Mammogram 03/09/2024 Current Control Method BCPs Age at Menarche 10 Obstetrics History GPAL:G 0 P 0 0 0 0 Past Encounters Encounter ID Performer Location Encounter Start Date Encounter Closed Date Diagnosis/Indication Diagnosis SNOMED-CT Code Diagnosis ICD10 Code Diagnosis Note [id number] ABDULAZIZ MARIA DO [facility] [address] [place] [address] 03/10/2022 09:13:26 03/10/2022 10:27:20 Gynecologic examination 99671838 Z01.419 46 y.o. here for annual exam. - Pap up to date from 2019 , discussed natural course of HPV infection, ASCCP guidelines . Plan to repeat cotesting in 2024 - Contracept andrews counseling : Discussed options including OCPs, NuvaRing, Nexplanon, hormonal and copper IUDs. Discussed risks, benefits, and side effects of each option, including risk of VTE with hormonal contracept ion and uterine perforatio n with IUD. Pt happy with COCs - Routine labs done with PCP - Mammo last year WNL, discussed option for yearly or q2 yr screening in 40s based on different guideline recommenda tions, pt without family hx, would like to proceed with q2yr screening, repeat next year - Depression screen NEG - BMI counseling , diet and exercise reviewed - RTO for annual or PRN Screening for malignant neoplasm of breast 015952834 Z12.39 Depression screening 171 334849 Z13.31 Hidradenit is suppurativa 23714705 L73.2 2 lesions noted that were healingDis cussex ppx tx w/ spironolac [place] [id number] Jazmine Devine MD [facility] [address] [place] [address] 08/03/2022 14:59:10 08/04/2022 09:55:11 Postmenopausal bleeding 45523082 N95.0 Unclear if post menopausal or not. disc that low estrogen pills may create atrophy of the endometriu m and lack of menses. Surveillan ce of oral contraception 378628836 Z30.41 [id number] ABDULAZIZ MARIA DO [facility] [address] [place] [address] 10/04/2022 09:56:58 10/04/2022 18:18:41 Postmenopausal bleeding 34426404 N95.0 N93.9 - PMB: Discussed etiologies including most commonly atony, importance of r/o hyperplasi a and cancer. RFs include age and obesity. Discussed option for office EMB versus D&C with [facility]ation in [facility]. Prefers to start with EMB. Aware that additional testing may be indicated if bleeding persists despite neg testing. [id number] GEOVANNY DE DIOS [facility] [address] [place] [address] 11/03/2022 10:36:57 11/03/2022 18:11:54 Postmenopausal bleeding 11255022 N95.0 -Pt follow up today from EMB completed and TVUS today.-Pt states she is still having some PMB. EMB completed by Dr. Maria on 10/04 that was benign however it says disordered proliferat ion, and i would like her to get an US to make sure her lining isn't thickened- per Dr. Maria's note. -TVUS today shows endometriu m mildly thickened at 0.7cm. Right ovarian simple cyst and left ovary WNL. No free fluid seen.-Cassandra ent will return next week to follow up with MD to discuss possible surgical D&C due to still mildly thickened endometriu m in the presence of PMB. Pt agreeable to plan. [id number] Annita Braun MD [facility] [address] [place] [address] 11/09/2022 10:13:50 11/09/2022 17:35:24 Menometrorrhagia 629969617 N92.1 Discussed perimenopa use and menopause today. We discussed that FSH is not diagnostic of menopause but is a guide to direct us. Best predictor of menopause is patient's family history. Discussed options for treatment of irregular bleeding including but not limited to progestin containing contracept slava. We also discussed that Hysterosco py/D&C could be performed but may only be a temporary measure in correcting bleeding. Patient would like to avoid surgery at this time if POP will control bleeding. Send Slynd to [facility] with instructio michelle on how to obtain script. 30 minutes spent reviewing history, counseling and documentat ion of today's patient visit. [id number] Annita Braun MD [facility] [address] [place] [address] 12/02/2023 11:13:12 12/02/2023 12:52:48 Gynecologic examination 64925908 Z01.419 Screening for malignant neoplasm of cervix 579306371 Z12.4 Screening for malignant neoplasm of breast 373475079 Z12.31 Depression screening 171 242418 Z13.31 refer to intake screening Surveillan ce of contraception 884933500 Z30.40 Health Concerns Section Related Observation LastModified by Organization Detai ls LastModified Time None Recorded Concern Status LastModified by Organization Details LastModified Time None Recorded Advance Directives Directive None Recorded Payers Encounter Date Sequence Insurance Name Policy Number Policy Dai Covered Member ID Dai Member ID Guarantor Name 08/03/2022 1 [place] [id number] 2 Fadumo Cotto Vinod [id number] Fadumo Vinod 10/04/2022 1 [place] [id number] 2 Fadumo Cotto Vinod [id number] Fadumo Segundotis 11/03/2022 1 [place] [id number] 2 Fadumo Cotto Vinod [id number] Fadumo Segundotis 11/09/2022 1 [place] [id number] 2 Fadumo Cotto Vinod [id number] Fadumo Vinod 12/02/2023 1 [place] [id number] 2 Fadumo Cotto Vinod [id number] Fadumo Vinod Notes Date Note Type Note Provider Name and Address Organization Details Recorded Time 08/03/2022 text/html Pt started bleed ing on 07/28/22 after not having a cycle for three years, pt said she had to wear tampons and their was blood clots with the bleeding. Pt also needs a refill on her BCP'S. Pt has had a cyst behind her clitoris and they put her on augmentin, pt says it drained and went away.She states she has not had a period in 3 yrs, but was taking ocp Jazmine Devine MD [facility] [facility], [place], [address], [employer] 09/22/2022 17:50:56 10/04/2022 text/html Patient is here for endometrial biopsy for post menapausual bleeding ABDULAZIZ MARIA DO [facility], [place], [address], [facility] [employer] 10/04/2022 10:46:10 11/03/2022 text/html Patient here for a follow up on her US which was preformed for post menopausal bleeding. DULCE RIVAS, GEOVANNY [address] [facility], [place], [address], [employer] 11/03/2022 11:55:42 11/09/2022 text/html Abnormal BleedingReported bypatient.Onset/Timin g:postmenopause Quality:moderate Associated Symptoms:abdominal pain;bloatingNotes:shay weller presents today with irregular bleeding. She has benign Endometrial biopsy in 10/06/2022. U/S with endometrial stripe of 7 mm. She has a FSH that is trending in a menopausal direction. She is here to follow up. Annita Braun MD [address] [facility], [place], [address], [facility] [employer] IV 11/11/2022 09:37:34 12/02/2023 text/html Annual GYNReport ed bypatient.History:no gynecologic complaints Menstrual cycle:patient currently dont have periods since she is on the oral b/c Urinary symptoms:No hematuria Vulva:No genital lesion Vagina:Vaginal itching Breast:No breast pain; No breast lump Current Contraception:Oral contraceptives Sexual complaints:No sexual complaints Menopausal Symptoms:No menopausal symptoms Psychological symptoms:No depression; No anxiety Preventive measures:Encourage regular exercise Fadumo is here for annual exampatient is currently taking SLYND controlpatient last pap 11/06/2019New foster son, age 12, goes to [employer], part of [employer] Annita Braun MD [address] [facility], [place], [address], [employer] 12/02/2023 12:02:29 OBGyn Episode No OBEpisode recorded.
--- OUTSIDE RECORDS SUMMARY | 2024-04-23 08:20 | XMS_ITS | Clinical Summary ---
Author Organization [facility] Address [address] [place] [address] Care Team Providers Care Yarn Packer Name Role Phone Marcus Chin MD Primary Care Provider Source Comments [facility],non-owned Affiliates and Associated Physician Practices is amultiple site organization consisting of ambulatory clinics and hospital sitesin [place], [place], [place] and [place]. This disclosure is being madepursuant to the Care Everywhere program and may not contain all information available regarding this patient. Last updated 17.[facility] Allergies Active Allergy Reactions Criticality Noted Date Comments Sulfa Drugs Itching,Nausea and/o r Vomiting,Other High 05/13/2013 When she was in her 20s Medications * Be aware that medications may not be up to date on this document. Alwaysverify current medications with the patient. Medication Sig Dispensed Refills Start Date End Date Status traZODone (DESYREL) 50 MG tablet 10/10/2019 Active montelukast (SINGULAIR) 10 MG tablet 09/06/2019 Active epinastine (ELESTAT) 0.05 % ophthalmic solution 09/06/2019 Active fluticasone propionate (FLONASE) 50 MCG/ACT nasal spray [place] 1 (one) spray to 2 (two) sprays into the nose once daily 12/12/2011 Active baclofen (LIORESAL) 10 MG tablet 08/22/2019 Active PROAIR RESPICLICK 108 (90 Base) MCG/ACT 05/23/2019 Active cetirizine (ZYRTEC) 10 MG tablet Take 1 (one) tablet by mouth once daily 12/08/2019 Active oxybutynin (DITROPAN) 5 MG tablet Take 1 (one) tablet by mouth once daily Active losartan (COZAAR) 25 MG tablet Take 1 (one) tablet by mouth once daily Active FLUoxetine HCl (PROZAC PO) Take 30 mg by mouth once daily Active MELOXICAM PO Active Other Take 1 Each by mouth once daily Taking a compounded med Slynd (progestogen only) Active omeprazole (PriLOSEC) 20 MG capsule Take 1 (one) capsule by mouth once daily 09/06/2023 Active hydrocortisone (Anusol-HC) 25 MG suppositoryIndic ations:Vaginal discharge 20 mg suppository ,Place 1 intravaginally twice weekly 24 suppository 2 09/27/2023 Active nystatin/triamci nolone (Mycolog) 452660-5.1 UNIT/GM-% ointmentIndicati ons:Acute vulvitis Use to vulvar skin, fingertip amount, topically once a day as needed for itching. 60 g 1 04/09/2024 Active Active Problems Problem Noted Date Diagnosed Date Allergic rhinitis due to animal hair and dander 06/29/2022 Mild persistent asthma without complication 06/12 Achilles tendinitis of left lower extremity 03/14 Pes planus 04/01/2020 Plantar fasciitis of right foot 04/01/2020 Headache 03/31/2020 Obesity 03/31/2020 Arthritis 10/02/2019 Allergic rhinitis 01/14/2019 IBS (irritable bowel syndrome) 01/14/2019 Onychomycosis 01/14/2019 Accommodative insufficiency 10/06/2018 Regular astigmatism 10/06/2018 Hypermetropia 05/20/2015 Asthma 12/12/2011 Overview (12/05/2019): SARINA HAWKINS MD Depressive disorder 12/12/2011 Overview (12/05/2019): SARINA HAWKINS MD Esophageal reflux 12/12/2011 Overview (12/05/2019): SARINADEMAR HAWKINS MD Encounters Date Type Department Care Team Description 04/05/2024 3:00 PM LOST AND FOUND CLERK Office Visit [facility] - DIRECTOR STATISTICAL PROGRAMMING [address] [facility] [address] [place] [address] Daisy Landis APRN-TRADE SHOW MANAGER Vulvar itching (Primary Dx); Vaginal discharge 04/05/2024 9:00 AM LOST AND FOUND CLERK - 04/05/2024 11:59 PM LOST AND FOUND CLERK Hospital Encounter [facility] Health Imaging Services - Radiology [address] [place] [address] Oscar Adler MD Discharge Disposition: Home or Self Care 04/05/2024 Travel 03/22/2024 Travel 03/16/2024 7:15 AM LOST AND FOUND CLERK Video Visit [facility] Health Weight Management Services [address], [address] [place] [address] Morbid obesity (HCC) 02/23/2024 7:00 AM LOST AND FOUND CLERK Video Visit [facility] Health Weight Management Services [address], [address] [place] [address] Morbid obesity (HCC) 02/16/2024 9:45 AM LOST AND FOUND CLERK Clinical Support [facility] Health Weight Management Services [address], [address] [place] [address] Morbid obesity (HCC) 01/27/2024 3:00 PM LOST AND FOUND CLERK Office Visit [facility] Health Weight Management Services [address], [address] [place] [address] Oscar Adler MD Morbid obesity (HCC) (Primary Dx); Gastroesophageal reflux disease with esophagitis without hemorrhage from Last 3 Months Family History Medical History Relation Name Comments Asthma Father Alzheimer's Disease Maternal Grandfather Cancer - Colon Maternal Grandfather Alzheimer's Disease Maternal Grandmother Cancer - Breast Maternal Grandmother Alcohol abuse Mother Cancer Paternal Grandfather Cancer - Breast Paternal Grandmother Relation Name Status Comments Father Alive Maternal Grandfather Maternal Grandmother Mother Paternal Grandfather Paternal Grandmother Alive Social History Tobacco Use Types Packs/Day Years Used Date Smoking Tobacco: Former Cigarettes 0.5 14 Smokeless Tobacco: Never Tobacco Cessation:Counseling Given: Not Answered Alcohol Use Standard Drinks/Week Comments Yes 0 (1 standard drink = 0.6 oz pur e alcohol) AUDIT-C Answer Date Recorded Q1: How often do you have a drink containing alc ohol? Monthly or less 12/05/2019 Q2: How many drinks containi ng alcohol do you have on a typical day when you are drinking? 1 or 2 12/05/2019 Q3: How often do you have si x or more drinks on one occasion? Never 12/05/2019 PHQ-2 Answer Date Recorded Patient Health Questionnaire-2 Score 0 04/04/2024 Sex and Gender Information Value Date Recorded Sex Assigned at Female 03/22/2024 9:30 AM LOST AND FOUND CLERK Gender Identity Not on file Sexual Orientation Not on file Last Filed Vital Signs Vital Sign Reading Time Taken Comments Blood Pressure 132/80 04/05/2024 3:13 PM LOST AND FOUND CLERK Pulse 84 01/27/2024 2:56 PM LOST AND FOUND CLERK Temperature 36.3 C (97.4 F) 01/27/2024 2:56 PM LOST AND FOUND CLERK Respiratory Rate - - Oxygen Saturation 98% 01/27/2024 2:56 PM LOST AND FOUND CLERK Inhaled Oxygen Concentration - - Weight 121.6 kg (268 lb) 04/05/2024 3:13 PM LOST AND FOUND CLERK Height 165.1 cm (5' 5 ) 04/05/2024 3:13 PM LOST AND FOUND CLERK Body Mass Index 44.6 04/05/2024 3:13 PM LOST AND FOUND CLERK Plan of Treatment Upcoming Encounters Date Type Department Care Team (Late st Contact Info) Description 04/25/2024 3:45 PM LOST AND FOUND CLERK Clinical Support [facility] Weight Management Services [address], [address] [place] [address] 10/04/2024 3:00 PM CDT [facility] - DIRECTOR STATISTICAL PROGRAMMING [address] [facility] [address] [place] [address] Daisy Landis, CONTROL MANAGER-TRADE SHOW MANAGER [address] [address] Health Maintenance Due Date Last Done Comments COLOGUARD (AGES 45-75) - COLON CA SCREENING [address] COLONOGRAPHY - COLON CA SCREENING 1973 FIT - COLON CA SCREENING 1973 FLEX SIG - COLON CA SCREENING 1973 LIPID TESTING 1973 HIV SCREENING 1988 HEPATITIS C SCREENING 07/28/1991 DTAP/TDAP/TD VACCINES (1 - Tdap) 1992 HEPATITIS B VACCINE (1 of 3 - 19+ 3-dose series) 1992 PNEUMOCOCCAL VACCINE 50+ (1 of 2 - PCV) 1992 SCREENING FOR DIABETES 12/05/2019 PAP SMEAR 10/20/2020 10/20/2017, 09/11/2010 ZOSTER VACCINE (1 of 2) 08/02/2023 COVID-19 VACCINE ( season) 2023 02/12/2022, 01/24/2021, 07/16/2020, Additional history exists INFLUENZA VACCINE (#1) 2023 , 01/24/2021, 03/14/2020, Additional history exists MAMMOGRAM 03/09/2026 03/09/2024, 02/12, 02/28/2023, Additional history exists COLONOSCOPY - COLON CA SCREENING 10/26/2033 10/27/2023 Colorectal Cancer Screening 10/26/2033 DEPRESSION SCREENING Completed 04/05/2024 HIB VACCINE Aged Out No longer eligi ble based on patient's age to complete this topic HPV VACCINE Aged Out No longer eligi ble based on patient's age to complete this topic MENINGOCOCCAL (Group B) VACCINE Aged Out No longer eligible based on patient's age to complete this topic MENINGOCOCCAL VACCINE Aged Out No isael charles eligible based on patient's age to complete this topic Procedures Procedure Name Priority Date/Time Associated Diagnosis Comments FUNGUS GEORGE - POINT OF CARE (AMB) [facility] Routine 04/05/2024 3:47 PM LOST AND FOUND CLERK Vaginal discharge WET PREP - POINT OF CARE (AMB) [facility] Routine 04/05/2024 3:46 PM LOST AND FOUND CLERK Vaginal discharge PH FLUID - POCT (AMB) [facility] Routine 04/05/2024 3:46 PM LOST AND FOUND CLERK Vaginal discharge FL UGI W AIR CONTRAST Routine 04/05/2024 9:51 AM LOST AND FOUND CLERK Gastroesophageal reflux disease with esophagitis without hemorrhage Morbid obesity (HCC) from Last 3 Months Results * FUNGUS GEORGE - POINT OF CARE (AMB) [facility] (04/05/2024 3:47 PM LOST AND FOUND CLERK) GEORGE Prep No [facility] [address] Fluid BODY FLUID SPECIMEN / Unknown 04/05/2024 3:47 PM LOST AND FOUND CLERK Daisy Landis APRN-TRADE SHOW MANAGER LAB - POINT OF CARE ORDERABLES [facility] [address] [place] [address], [facility] [phone] * PH FLUID - POCT (AMB) [facility] (04/05/2024 3:46 PM LOST AND FOUND CLERK) pH Vaginal 4.5 [facility] [address] Fluid ENTIRE VAGINA / Unknown 04/05/2024 3:46 PM LOST AND FOUND CLERK Daisy Landis APRN-TRADE SHOW MANAGER LAB - POINT OF CARE ORDERABLES [facility] [address] [place] [address], [facility] [phone] * WET PREP - POINT OF CARE (AMB) [facility] (04/05/2024 3:46 PM LOST AND FOUND CLERK) pH Wet Prep 4.[address] [facility] [address] Yeast Wet Prep no [facility] RE [address] Trichomonas Wet Prep None [facility] [address] Bacteria Wet Prep rare WBC [facility] [address] Whiff Test no [facility] [address] BODY FLUID SPECIMEN / Unknown 04/05/2024 3:46 PM LOST AND FOUND CLERK Daisy Landis CONTROL MANAGER-TRADE SHOW MANAGER LAB - POINT OF CARE ORDERABLES [facility] [address] [place] [address], [facility] [phone] * FL Ugi W Air Contrast (04/05/2024 9:51 AM LOST AND FOUND CLERK) Anatomical Region Laterality Modality Abdomen Computed Radiogr aphy Impressions 04/05/2024 10:49 AM LOST AND FOUND CLERK IMPRESSION: Small hiatal hernia and mild witnessed gastroesophageal reflux > Interpreting Provider: Roberto Funk JR, MD on 04/05/2024 10:49 AM Narrative 04/05/2024 10:49 AM LOST AND FOUND CLERK AIR CONTRAST UPPER GI INDICATION: Morbid obesity, preoperative assessment before bariatric surgery, gastroesophageal reflux, hiatal hernia FINDINGS: After having the patient ingest thin oral barium and effervescent gas crystals, cine fluoroscopy was performed of the esophagus, stomach and duodenum. Imaging was performed with the patient standing, with the patient supine, in the oblique positions, in the right lateral position, and during Valsalva maneuver. Total fluoroscopy time was 70 seconds, spot fluoroscopic images were not obtained because cine fluoroscopy was utilized and the images were saved in video format. Total fluoroscopy dose was 2.607 mgy. The esophagus is normal in contour and caliber. There is no esophageal mass, stricture or ulceration. Gastric mucosa is normal. There is no gastric mass or gastric ulceration. There is no gastric outlet obstruction. The duodenal bulb and C-loop are normal. There was mild witnessed gastroesophageal reflux and there appears to be a small hiatal hernia. Oscar Adler MD FLUOROSCOPY ORDERABL ES from Last 3 Months Care Teams Yarn Packer Relationship Specialty Start Date End Date Marcus Chin MD [address] [facility] [address] [place], [place] [address] PCP - General Family Medicine 04/05/24
--- OUTSIDE RECORDS SUMMARY | 2024-04-23 08:20 | XMS_ITS | Patient Health Summary ---
Author Organization [facility] Address [address] [place] [address] Care Team Providers Care Gold Layer Name Role Phone Marcus Chin MD Primary Care Provider Note from [facility],non-owned Affiliates and Associated Physician Practices is amultiple site organization consisting of ambulatory clinics and hospital sitesin [place], [place], [place] and [place]. This disclosure is being madepursuant to the Care Everywhere program and may not contain all information available regarding this patient. Last updated 17.[facility] Allergies * Sulfa Drugs(Itching,Nausea and/or Vomiting,Other) -High Criticality Medications * Be aware that medications may not be up to date on this document. Alwaysverify current medications with the patient. * traZODone (DESYREL) 50 MG tablet(Started 10/10/2019) * montelukast (SINGULAIR) 10 MG tablet(Started 09/06/2019) * epinastine (ELESTAT) 0.05 % ophthalmic solution(Started 09/06/2019) * fluticasone propionate (FLONASE) 50 MCG/ACT nasal spray(Started 12/12/2011) [place] 1 (one) spray to 2 (two) sprays into the nose once daily * baclofen (LIORESAL) 10 MG tablet(Started 08/22/2019) * PROAIR RESPICLICK 108 (90 Base) MCG/ACT(Started 05/23/2019) * cetirizine (ZYRTEC) 10 MG tablet(Started 12/08/2019) Take 1 (one) tablet by mouth once daily * oxybutynin (DITROPAN) 5 MG tablet Take 1 (one) tablet by mouth once daily * losartan (COZAAR) 25 MG tablet Take 1 (one) tablet by mouth once daily * FLUoxetine HCl (PROZAC PO) Take 30 mg by mouth once daily * MELOXICAM PO * Other Take 1 Each by mouth once daily Taking a compounded med Slynd (progestogen only) * omeprazole (PriLOSEC) 20 MG capsule(Started 09/06/2023) Take 1 (one) capsule by mouth once daily * hydrocortisone (Anusol-HC) 25 MG suppository(Started 09/27/2023) 20 mg suppository ,Place 1 intravaginally twice weekly 2 refills by 09/26/2024 * nystatin/triamcinolone (Mycolog) 400136-1.1 UNIT/GM-% ointment(Started 04/09/2024) Use to vulvar skin, fingertip amount, topically once a day as needed for itching. 1 refill by 04/09/2025 Active Problems Problem Noted Date Diagnosed Date [...] Regular astigmatism 10/06/2018 Hypermetropia 05/20/2015 Asthma 12/12/2011 Depressive disorder 12/12/2011 Esophageal reflux 12/12/2011 Social History Tobacco Use Types Packs/Day Years [...] Sex Assigned at Female 03/22/2024 9:30 AM INDUSTRIAL SERVICE TECHNICIAN Gender Identity Not on file Sexual Orientation Not on file Last Filed Vital Signs Vital Sign Reading Time Taken Comments Blood Pressure 132/80 04/05/2024 3:13 PM INDUSTRIAL SERVICE TECHNICIAN Pulse 84 01/27/2024 2:56 PM INDUSTRIAL SERVICE TECHNICIAN Temperature 36.3 C (97.4 F) 01/27/2024 2:56 PM INDUSTRIAL SERVICE TECHNICIAN Respiratory Rate - - Oxygen Saturation 98% 01/27/2024 2:56 PM INDUSTRIAL SERVICE TECHNICIAN Inhaled Oxygen Concentration - - Weight 121.6 kg (268 lb) 04/05/2024 3:13 PM INDUSTRIAL SERVICE TECHNICIAN Height 165.1 cm (5' 5 ) 04/05/2024 3:13 PM INDUSTRIAL SERVICE TECHNICIAN Body Mass Index 44.6 04/05/2024 3:13 PM INDUSTRIAL SERVICE TECHNICIAN Procedures * FUNGUS GEORGE - POINT OF CARE (AMB) [facility](Performed 04/05/2024) Performed for Vaginal discharge * WET PREP - POINT OF CARE (AMB) [facility](Performed 04/05/2024) Performed for Vaginal discharge * PH FLUID - POCT (AMB) [facility](Performed 04/05/2024) Performed for Vaginal discharge * FL UGI W AIR CONTRAST(Performed 04/05/2024) Performed for Gastroesophageal reflux disease with esophagitis without hemorrhage, Morbid obesity (HCC) * FUNGUS GEORGE - POINT OF CARE (AMB) [facility](Performed 09/27/2023) Performed for Vaginal discharge * WET PREP - POINT OF CARE (AMB) [facility](Performed 09/27/2023) Performed for Vaginal discharge * PH FLUID - POCT (AMB) [facility](Performed 09/27/2023) Performed for Vaginal discharge * PH FLUID - POCT (AMB) [facility](Performed 03/08/2023) Performed for Vaginal discharge * FUNGUS GEORGE - POINT OF CARE (AMB) [facility](Performed 03/08/2023) Performed for Vaginal discharge * WET PREP - POINT OF CARE (AMB) [facility](Performed 03/08/2023) Performed for Vaginal discharge * WET PREP - POINT OF CARE (AMB) [facility](Performed 06/29/2022) Performed for Vaginal discharge * PH FLUID - POCT (AMB) [facility](Performed 06/29/2022) Performed for Vaginal discharge * FUNGUS GEORGE - POINT OF CARE (AMB) [facility](Performed 06/29/2022) Performed for Vaginal discharge * WET PREP - POINT OF CARE (AMB) [facility](Performed 12/08/2021) Performed for Vaginal discharge * PH FLUID - POCT (AMB) [facility](Performed 12/08/2021) Performed for Vaginal discharge * FUNGUS GEORGE - POINT OF CARE (AMB) [facility](Performed 12/08/2021) Performed for Vaginal discharge * WET PREP - POINT OF CARE (AMB) [facility](Performed 06/02/2021) Performed for Vaginal discharge * PH FLUID - POCT (AMB) SL[facility](Performed 06/02/2021) Performed for Vaginal discharge * FUNGUS GEROGE - POINT OF CARE (AMB) [facility](Performed 06/02/2021) Performed for Vaginal discharge * WET PREP - POINT OF CARE (AMB) [facility](Performed 08/07/2020) Performed for Vaginal discharge * PH FLUID - POCT (AMB) SL[facility](Performed 08/07/2020) Performed for Vaginal discharge * FUNGUS GEORGE - POINT OF CARE (AMB) [facility](Performed 08/07/2020) Performed for Vaginal discharge * WET PREP - POINT OF CARE (AMB) [facility](Performed 03/20/2020) Performed for Vaginal discharge * PH FLUID - POCT (AMB) SL[facility](Performed 03/20/2020) Performed for Vaginal discharge * FUNGUS GEORGE - POINT OF CARE (AMB) [facility](Performed 03/20/2020) Performed for Vaginal discharge * WET PREP - POINT OF CARE (AMB) [facility](Performed 12/26/2019) Performed for Vaginal discharge * PH FLUID - POCT (AMB) SL[facility](Performed 12/26/2019) Performed for Vaginal discharge * FUNGUS GEORGE - POINT OF CARE (AMB) [facility](Performed 12/26/2019) Performed for Vaginal discharge * WET PREP - POINT OF CARE (AMB) [facility](Performed 12/05/2019) Performed for Vaginal discharge, Acute vulvitis * PH FLUID - POCT (AMB) [facility](Performed 12/05/2019) Performed for Vaginal discharge, Acute vulvitis * FUNGUS GEORGE - POINT OF CARE (AMB) [facility](Performed 12/05/2019) Performed for Vaginal discharge, Acute vulvitis * GROSS + MICRO EXAM(Performed 05/12/2001) Results * FUNGUS GEORGE - POINT OF CARE (AMB) [facility] (04/05/2024 3:47 PM INDUSTRIAL SERVICE TECHNICIAN) Only the most recent of10 resultswithin the time period is included. GEORGE Prep No [facility] [address] Fluid BODY FLUID SPECIMEN / Unknown 04/05/2024 3:47 PM INDUSTRIAL SERVICE TECHNICIAN Daisy Landis DIE CASTING MACHINE OPERATOR-SALES REPRESENTATIVE ADVERTISING LAB - POINT OF CARE ORDERABLES [facility] [address] [place] [address], [facility] [phone] * PH FLUID - POCT (AMB) [facility] (04/05/2024 3:46 PM INDUSTRIAL SERVICE TECHNICIAN) Only the most recent of10 resultswithin the time period is included. pH Vaginal 4.5 [facility] [address] Fluid ENTIRE VAGINA / Unknown 04/05/2024 3:46 PM INDUSTRIAL SERVICE TECHNICIAN Daisy Landis APRN-SALES REPRESENTATIVE ADVERTISING LAB - POINT OF CARE ORDERABLES [facility] [address] [place] [address], [facility] [phone] * WET PREP - POINT OF CARE (AMB) [facility] (04/05/2024 3:46 PM INDUSTRIAL SERVICE TECHNICIAN) Only the most recent of10 resultswithin the time period is included. pH Wet Prep 4.[address] [facility] [address] Yeast Wet Prep no [facility] [address] Trichomonas Wet Prep None [facility] [address] Bacteria Wet Prep rare WBC [facility] [address] Whiff Test no [facility] [address] BODY FLUID SPECIMEN / Unknown 04/05/2024 3:46 PM INDUSTRIAL SERVICE TECHNICIAN Daisy Landis APRN-SALES REPRESENTATIVE ADVERTISING LAB - POINT OF CARE ORDERABLES [facility] [address] [place] [address], [facility] [phone] * FL Ugi W Air Contrast (04/05/2024 9:51 AM INDUSTRIAL SERVICE TECHNICIAN) Anatomical Region Laterality Modality Abdomen Computed Radiogr aphy Impressions 04/05/2024 10:49 AM INDUSTRIAL SERVICE TECHNICIAN IMPRESSION: Small hiatal hernia and mild witnessed gastroesophageal reflux > Interpreting Provider: Roberto Funk JR, MD on 04/05/2024 10:49 AM Narrative 04/05/2024 10:49 AM INDUSTRIAL SERVICE TECHNICIAN AIR CONTRAST UPPER GI INDICATION: Morbid obesity, [...] hernia. Oscar Adler MD FLUOROSCOPY ORDERABL ES * GROSS + MICRO EXAM (05/12/2001 10:46 AM INDUSTRIAL SERVICE TECHNICIAN) Result CASE NUMBER [id number] Comment: ORDERING PHYSICIAN AMINATA LI SPECIMEN TYPE Pilonidal Cyst Date 05/12/2001 Physician Camilo Li Gross Description The specimen is received in a single formalin-filled container labeled with the patient's name and pilonidal cyst . The specimen consists of a single piece of pink-yellow fibroadipose tissue with overlying mathis skin ellipse measuring 5 x 3.5 x 2.5 cm. The skin ellipse measures 4.3 x 1.2 x 0.4 cm. The entire surgical margin is inked black. There is a linear scar on the cutaneous surface measuring 3.5 cm. in length and 0.1 cm. in width. The specimen is serially sectioned revealing a healing, slightly hemorrhagic, slightly cystic cavity measuring 1 x 0.7 x 0.3 cm. Tie Binder sections are submitted as follows cassette A, sections of the ellipse tip cassettes B and C, sections of the cyst cassette D, section away from the cyst. BR/bk Microscopic Exam Microscopic examination of sections labeled A through D reveal multiple fragments of tissue surfaced in part by a squamous epithelium that shows normal maturation. In one area the underlying tissues show a channel lined by squamous epithelium and extending into an area of marked inflammation. The inflammatory process consists of a central, poorly-defined cavity filled with polymorphonuclear leukocytes mixed with macrophages and multinucleate giant cells. No residual identifiable epithelial lining is seen in the cyst itself. The surrounding tissues show prominent fibrosis with infiltrates of lymphocytes, plasma cells and scattered eosinophils. In none of the sections is there any evidence of malignancy or atypia. Diagnosis I. Skin and subcutaneous tissue from the lower back A. Changes consistent with acutely and chronically inflamed pilonidal cyst. Air Operations Manager bk Pathologist Juice Mancilla M.D. [place]. 05/15/2001 0957 <2> CPT code 38371 MISCELLANEOUS SAMPLES / Unknown 05/12/2001 10:46 AM INDUSTRIAL SERVICE TECHNICIAN 05/12/2001 10:46 AM INDUSTRIAL SERVICE TECHNICIAN Historical Provider LAB - PATHOLOGY/C YTOLOGY ORDERABLES Care Teams Gold Layer Relationship Specialty Start Date End Date Marcus Chin MD [address] [place] [address] PCP - General Family Medicine 04/05/24
--- OUTSIDE RECORDS SUMMARY | 2024-04-23 08:20 | XMS_ITS | Clinical Summary ---
Author Organization [facility] Address [address] [place] [address] Phone Care Team Providers Care Project Estimator Name Role Phone Yasmani Simons MD Primary Care Provider [phone] Allergies Active Allergy Reactions Criticality Noted Date Comments Sulfa Antibiotics Unknown High 05/13/2013 Medications Multiple Vitamins-Minera ls (MULTIVITAL PO) Take by mouth. Activ e fluticasone (FLONASE) 50 MCG/ACT NA SUSP 1-2 Sprays by Nasal route daily. Use in each nostril as directed. Active cetirizine (ZYRTEC ALLERGY) 10 MG PO TABS Take 10 mg by mouth nightly. Active VIORELE 0.15-0.02/0.01 MG (01/08) Tablet Take 1 Tab by mouth daily. 5 Active epinastine (ELESTAT) 0.05 % Solution Place 1 Drop in both eyes daily. 6 Active Azelastine HCl (ASTEPRO) 0.15 % Solution 2 Puffs by Nasal route every 12 hours. Active PULMICORT FLEXHALER 180 MCG/ACT AEROSOL POWDER, BREATH ACTIVATED TK 2 INHALATIONS PO BID 2 8 Active montelukast (SINGULAIR) 10 MG Tablet Take 1 Tab by mouth every evening. 90 Tab 3 9 Active pantoprazole (PROTONIX) 40 MG Pack Take 40 mg by mouth daily. 90 Packet 3 9 Active triamcinolone (KENALOG) 0.1 % Cream Apply to affected areas b.i.d. 80 g 1 9 Active PROAIR RESPICLICK 108 (90 Base) MCG/ACT AEROSOL POWDER, BREATH ACTIVATED 9 Active mupirocin (BACTROBAN) 2 % OintmentIndicat ions:Abrasion of face, initial encounter Apply thin film to affected areas 3 times daily until healed. 15 g 0 Active baclofen (LIORESAL) 10 MG Tablet Take 0.5-1 Tabs by mouth 3 times daily as needed (spasm). 60 Tab 1 0 Active Fluticasone-Tobin meterol 113-14 MCG/ACT AEROSOL POWDER, BREATH ACTIVATED INL 1 PUFF PO BID 0 Active traZODone (DESYREL) 50 MG Tablet TAKE 1 TABLET NIGHTLY 90 Tab 3 1 Active nabumetone (RELAFEN) 500 MG Tablet TAKE 1 TABLET TWICE A DAY 180 Tab 3 1 Active Active Problems Problem Noted Date Diagnosed Date Asthma Allergic rhinitis Depression IBS (irritable bowel syndrome) Onychomycosis Resolved Problems Problem Noted Date Diagnosed Date Resolved Date Acute upper respiratory infection 05/30/2018 Immunizations Immunization Administration Dates Next Due Covid-19, Mrna, Lnp-s, PF, 1 00 mcg/0.5 mL Dose (Moderna) 07/16/2020,06/18/2020 Influenza Vaccine greater than 3 yrs 12/19/2018, 12/13/2017 Influenza Vaccine, Quadrivalent, PF 12/08/2015 Influenza, Seasonal, Injectable, Undefined 12/19,12/13/2017 TD VACCINE 03/14/1999 Family History Medical History Relation Name Comments Breast Cancer Maternal Grandmother Ovarian Cancer Neg Hx Relation Name Status Comments Maternal Grandmother Social History Tobacco Use Types Packs/Day Years Used Date Smoking Tobacco: Former Cigarettes 1 14 0 06/24/1994 - 06/24/2008 Smokeless Tobacco: Never Tobacco Cessation:Counseling Given: Yes Alcohol Use Standard Drinks/Week Comments Yes 0 (1 standard drink = 0.6 oz pur e alcohol) rare PHQ-2 Answer Date Recorded PHQ-2 Score 0 11/10/2018 Comments No Sex and Gender Information Value Date Recorded Sex Assigned at Not on file Legal Sex 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 Gender Identity Not on file Sexual Orientation Not on file Last Filed Vital Signs Vital Sign Reading Time Taken Comments Blood Pressure 126/74 08/14/2019 3:15 PM CDT Pulse 72 08/14/2019 3:15 PM CDT Temperature 37 C (98.6 F) 08/14/2019 3:15 PM CDT Respiratory Rate 18 08/14/2019 3:15 PM CDT Oxygen Saturation 96% 08/14/2019 3:15 PM CDT Inhaled Oxygen Concentration - - Weight 92.5 kg (204 lb) 08/14/2019 3:15 PM CDT Height 165.1 cm (5' 5 ) 08/14/2019 3:15 PM CDT Body Mass Index 33.95 08/14/2019 3:15 PM CDT Plan of Treatment Health Maintenance Due Date Last Done Comments Hepatitis C Virus (HCV) Screening 1973 TdaP Immunization 1973 Hepatitis B Immunization (1 of 3 - 19+ 3-dose series) 1992 Pneumococcal Immunization (50+ years) (1 of 2 - PCV) 1992 HPV/Cotest 09/12/2015 09/11/2010 Colonoscopy 2018 Colorectal Cancer Screening 2018 Cervical Cancer Screening (CCS) 10/20/2020 Pap Smear 10/20/2020 10/20/2017, 09/11/2010 Cologuard 08/02/2023 Immunochemical Fecal Occult Blood 08/02/2023 Mammogram 08/02/2023 09/30/2018, 09/11, 03/19/2016 Zoster Immunization (1 of 2) 08/02/2023 Influenza Immunization (#1) 2023 01/0 03/2020, 12/19/2018, 12/13/2017, Additional history exists SARS-COV-2 Immunization ( season) 2023 01/24/2021, 07/16/2020, 06/18/2020 Respiratory Syncytial Virus (RSV) Immunization (Adult) (1 - 1-dose 75+ series) 2048 DTaP/Tdap/Td Immunization Discontinued 03/14/1999 Discussion re Starting/Frequency of Mammograms Discontinued 09/30/2018, 09/22/2018, 03/19/2016 Meningococcal Immunization (ACWY) Aged Out No longer eligible based on patient's age to complete this topic Rotavirus Immunization Aged Out No lo nger eligible based on patient's age to complete this topic Procedures Procedure Name Priority Date/Time Associated Diagnosis Comments GAEL MARINA BILATERAL DIGITAL WO CAD W RONNI Routine 09/30/2018 8:34 AM CDT Abnormal mammogram PATHOLOGY CYTOLOGY OUTPATIENT CODING SPECIALIST Routine 10/20/2017 HUMAN PAPILLOMA VIRUS (HPV) Routine 09/11/2010 11:20 AM CDT from Last 3 Months or Most Recently Relevant to Health Maintenance Results * GAEL DIAEdwin BILATERAL DIGITAL WO CAD W RONNI (09/30/2018 8:34 AM CDT) Anatomical Region Laterality Modality breast Bilateral Mammography 09/30/2018 8:34 AM CDT Impressions 09/30/2018 9:08 AM CDT IMPRESSION: Right breast cyst. There is no mammographic or sonographic evidence of malignancy. RECOMMENDATIONS: Annual mammography is recommended. Written results and recommendations were given to the patient at the conclusion of this examination today. BI-RADS: 2 - Benign Findings. Narrative 09/30/2018 9:08 AM CDT Dictating Physician: Diego Martin M.D. Exam: [facility] LAINA BILATERAL DIGITAL WO CAD W RONNI, [facility] US BREAST LIMITED RT 09/30/2018 8:34 AM Comparison: 09/22/2018, 03/23/2016, 03/19/2016 History: Bilateral asymmetries seen on a recent screening examination Findings: Bilateral Digital Diagnostic Mammogram Spot compression views of both breasts were obtained. Additional 3-D tomographic mammography was also obtained (tomosynthesis, which consists of multiplanar projections with computer image reconstruction into 1 mm parallel slices). The asymmetry seen in the posterior third of the lateral right breast persists as a partially circumscribed, partially obscured round 1.4 cm mass. The asymmetry seen in the central left breast effaces on spot compression imaging, consistent with normal fibroglandular tissue. The patient was taken to ultrasound for further evaluation of the right breast mass. Right Breast Ultrasound Targeted real-time sonographic alvarado scale and color Doppler evaluation was performed. Corresponding to the mass seen on mammography is an anechoic 1.5 x 1.3 cm cyst at 9:00, 5 cm from the nipple. It demonstrates posterior acoustic enhancement with no internal vascularity on color images. No suspicious sonographic findings. . Procedure Note Diego Martin MD - 09/30/2018 Dictating Physician: Diego Martin M.D. Exam: [facility] DIAG BILATERAL DIGITAL WO CAD W RONNI [facility] US BREAST LIMITED RT09/30/2018 8:34 AM Comparison: 09/22/2018, 03/23/2016, 03/19/2016 History: Bilateral asymmetries seen on a recent screening examination Findings: Bilateral Digital Diagnostic Mammogram Spot compression views of both breasts were obtained. Additional 3-Dtomographic mammography was also obtained (tomosynthesis, which consistsof multiplanar projections with computer image reconstruction into 1 mmparallel slices). The asymmetry seen in the posterior third of the lateral right breastpersists as a partially circumscribed, partially obscured round 1.4 cmmass. The asymmetry seen in the central left breast effaces on spotcompression imaging, consistent with normal fibroglandular tissue. Thepatient was taken to ultrasound for further evaluation of the right breastmass. Right Breast Ultrasound Targeted real-time sonographic alvarado scale and color Doppler evaluation wasperformed. Corresponding to the mass seen on mammography is an anechoic1.5 x 1.3 cm cyst at 9:00, 5 cm from the nipple. It demonstrates posterioracoustic enhancement with no internal vascularity on color images. Nosuspicious sonographic findings. . IMPRESSION: Right breast cyst. There is no mammographic or sonographic evidence of malignancy. RECOMMENDATIONS: Annual mammography is recommended. Written results and recommendations were given to the patient at theconclusion of this examination today. BI-RADS: 2 - Benign Findings. Yasmani Simons MD IMG MAMMO ORDERABLES Final Result * PATHOLOGY CYTOLOGY OUTPATIENT CODING SPECIALIST (10/20/2017) Specimen of unknown material (specimen) Vandana Hoover POMPOM MAKER, CREDENTIALING COORDINATOR PATHOLOGY/CYTOLOGY ORDERABLES Final Result * HUMAN PAPILLOMA VIRUS (HPV) (09/11/2010 11:20 AM CDT) HPV DNA, LOW RISK NOT DETECTED NOT DETECTED [facility] Comment:THE ABSENCE OF LOW-R ISK TYPES OF HPV (TYPES 6,11,42,43,OR 44) DOES NOT RULE OUT THE PRESENCE OF HPV, BUT PATIENTS WITHOUT HIGH-RISK NOR LOW-RISK HPV TYPES RARELY DEVELOP LOW-GRADE CERVICAL OR VAGINAL LESIONS, SUCH CONDYLOMAS. HPV DNA, HIGH RISK NOT DETECTED NOT DETECTED [facility] Comment:PATIENTS WITHOUT INF ECTION BY HIGH-RISK HPV (TYPES 16,18,31,33,35,39,45,51,52,56,58,59,AND 68) RARELY HAVE PRECANCEROUS LESIONS OR CANCER OF THE CERVIX. THIN PREP ROLANDO DATE 09/11/2010 [facility] Comment:TESTING PERFORMED [place] [employer] METHODOLOGY FOR HPV TESTING. [facility] IS LOCATED AT [address] [place] [address], [place] [address], PHONE [phone] OR [email or web address]. [email or web address]>. 09/11/2010 11:2 0 AM CDT 09/18/2010 11:20 AM CDT Juliana Garcia APRN, CNM LAB SEND OUTS Final Result [facility] [address] [place] [address] from Last 3 Months or Most Recently Relevant to Health Maintenance Insurance [facility] Care Teams Project Estimator Relationship Specialty Start Date End Date Yasmani Simons MD [address] [place] [address] PCP - General 05/05/10
--- OUTSIDE RECORDS SUMMARY | 2024-04-23 08:20 | XMS_ITS ---
Author Organization [facility] Address [address] [place] [address] Care Team Providers Care Military Education Coordinator Name Role Phone Bonita Zuñiga Unavailable [phone] Facundo Gimenez Unavailable [phone] REASON FOR VISIT SCIT - Traditional Schedule Allergy Immunotherapy Medications Medication SIG (Take, Route, Frequency, Duration) Notes Start Date End Date Status Azelastine HCl 137 MCG/SPRAY 2 spray(s) intranasally 2 times a day for 30 days Active Montelukast Sodium 10 MG TAKE 1 TABLET DAILY for 90 Active PROVENTIL (ALBUTEROL) HFA 90 MCG/INH 2 PUFF(S) INHALED EVERY 4-6 HOURS for 30 DAYS *Please review for potential replacement for e-prescription and drug interaction check* Active Fluticasone Propionate 50 MCG/ACT 1 spray(s) in each nostril twice a day for 90 days 06/23/2023 Active Wixela Inhub 250 MCG-50 MCG 1 INH INHALED 2 TIMES A DAY for 30 DAYS *Please review and pick correct strength-formulat ion from Digital Vault options. If intended option is not shown, discontinue and re-order from Quick Search* 06/23/2023 Active Singulair 10 MG 1 tab(s) orally once a day for 90 days needs follow-up for more refills Not-Taking Advair HFA 115 MCG-21 MCG USE 2 INHALATIONS ORALLY TWICE DAILY WITH SPACER (NEED FOLLOW-UP FOR FURTHERREFILLS) for 90 *Please review and pick correct strength-formulat ion from Digital Vault options. If intended option is not shown, discontinue and re-order from Quick Search* Active Flonase Allergy Relief 50 MCG/ACT 1 spray(s) intranasally once a day for 90 days Not-Taking Fluticasone Propionate 50 MCG/ACT 1 spray(s) in each nostril once a day for 90 days 03/15/2023 Not-Taking Azelastine HCl 137 MCG/SPRAY 2 spray(s) intranasally 2 times a day for 30 days Not-Taking Flonase Allergy Relief 50 MCG/ACT 1 spray(s) intranasally once a day for 90 days Active EpiPen 2-Julian 0.3 MG/0.3ML as directed intramuscularly once Active Losartan Potassium 25 MG 1 tab(s) orally once a day for 30 day(s) Active PROzac 20 MG 1 cap(s) orally once a day for 30 day(s) Active oxyBUTYnin Chloride ER 5 MG 1 tab(s) orally once a day for 30 day(s) Active Slynd 4 MG 1 tab(s) orally once a day Active Advair HFA 115-21 MCG/ACT inhale 2 puffs by mouth twice daily with spacer inhaled 2 times a day for 90 days Active AEROCHAMBER MDI SPACER - MOUTHPIECE (ADULT) N/A DIRECTED PO PER ASTHMA ACTION PLAN *Please review for potential replacement for e-prescription and drug interaction check* Active Meloxicam 7.5 MG 1 tab(s) orally once a day for 30 day(s) Active Omeprazole 40 MG 1 cap(s) orally once a day Active Auvi-Q 0.3 MG/0.3ML as directed intramuscularly once for 30 day(s) Active SIT (TRADITIONAL) VARIABLE PER SCHEDULE SC PER SCHEDULE for TO BE DETERMINED *Please review for potential replacement for e-prescription and drug interaction check* Active ZyrTEC Allergy 10 MG 1 tab(s) orally once a day for 90 days Active Epinastine HCl 0.05 % 1 gtt in each affected eye 2 times a day for 90 days Active Baclofen 5 MG 1.5 tab(s) orally Qday Active Protonix 40 MG 1 tab(s) orally once a day Active Nabumetone 500 MG 2 tab(s) orally once a day Active traMADol HCl 50 MG 1 tab(s) orally every 6 hours Active Azurette 0.15-0.02/0.01 MG (21/5) 1 tab(s) orally once a day Active traZODone HCl 50 MG 1 tab(s) orally Qday Active AZELASTINE NASAL 137 mcg/inh 2 spray(s) intranasally 2 times a day for 90 days Active FLUTICASONE PROPIONATE 50 mcg/inh 1 spray(s) in each nostril twice a day for 90 days 06/23/2023 Active WIXELA INHUB 250 mcg-50 mcg 1 INH inhaled 2 times a day for 30 days 06/23/2023 Active AZELASTINE NASAL 137 mcg/inh 2 spray(s) intranasally 2 times a day for 30 days Not-Taking Albuterol Sulfate HFA 108 (90 Base) MCG/ACT 1 puff as needed Inhalation every 4 hrs 08/31/2023 Active FLONASE 50 mcg/inh 1 spray(s) intranasally once a day for 90 days Active FLUTICASONE NASAL 50 mcg/inh 1 spray(s) in each nostril once a day for 90 days 03/15/2023 Not-Taking ADVAIR HFA 115 mcg-21 mcg USE 2 INHALATIONS ORALLY TWICE DAILY WITH SPACER (NEED FOLLOW-UP FOR FURTHERREFILLS) for 90 Active FLONASE 50 mcg/inh 1 spray(s) intranasally once a day for 90 days Not-Taking SINGULAIR 10 mg 1 tab(s) orally once a day for 90 days needs follow-up for more refills Not-Taking OXYBUTYNIN 5 mg/24 hours 1 tab(s) orally once a day for 30 day(s) Active MELOXICAM 7.5 mg 1 tab(s) orally once a day for 30 day(s) Active EPIPEN 2-JULIAN 0.3 mg as directed intramuscularly once Active LOSARTAN 25 mg 1 tab(s) orally once a day for 30 day(s) Active PROZAC 20 mg 1 cap(s) orally once a day for 30 day(s) Active OMEPRAZOLE 40 mg 1 cap(s) orally once a day Active SLYND 4 mg 1 tab(s) orally once a day Active ADVAIR HFA CFC free 115 mcg-21 mcg/inh inhale 2 puffs by mouth twice daily with spacer inhaled 2 times a day for 90 days Active AUVI -Q 0.3 mg as directed intramuscularly once for 30 day(s) Active ZYRTEC 10 mg 1 tab(s) orally once a day for 90 days Active TRAZODONE 50 mg 1 tab(s) orally Qday Active SINGULAIR 10 mg 1 tab(s) orally once a day for 90 days Active EPINASTINE OPHTHALMIC 0.05% 1 gtt in each affected eye 2 times a day for 90 days Active BACLOFEN 5 mg 1.5 tab(s) orally Qday Active AZURETTE biphasic 1 tab(s) orally once a day Active PROTONIX 40 mg 1 tab(s) orally once a day Active NABUMETONE 500 mg 2 tab(s) orally once a day Active TRAMADOL 50 mg 1 tab(s) orally ever y 6 hours Active Encounters Encounter Location Date Provider Diagnosis [facility] [address] [facility] [facility] [address] [place] [address] 03/29/2024 Facundo Gimenez Allergic rhinitis du e to pollen J30.1 ; Other allergic rhinitis J30.89 ; Allergic rhinitis due to animal (cat) (dog) hair and dander J30.81 and Other chronic allergic conjunctivitis H10.45 Assessments Encounter Date Diagnosis (ICD Code) Assessment Notes Treatment Notes Treatment Clinical Notes Section Notes 03/29/2024 Allergic rhinitis due to pollen (ICD-10 - J30.1) 03/29/2024 Other allergic rhinitis (ICD-10 - J30.89) 03/29/2024 Allergic rhinitis due to animal (cat) (dog) hair and dander (ICD-10 - J30.81) 03/29/2024 Other chronic allergic conjunctivitis (ICD-10 - H10.45) Plan Of Treatment Next Appt Details Follow Up: 1 Week, Reason: Provider Name:Facundo KarolCornelius Gimenez , 05/03/2024 04:30:00 PM, 2022 24h00, [address] [place] [address], [phone], Provider Name:Facundo Gimenez , 05/31/2024 07:40:00 AM, 2022 24h00, [address] [place] [address], [phone], Progress Notes * Fadumo BR[birth year]DOB:[birth year] (48 yo F)Acc No.[id number]:03/29/2024 SCIT-Aeroallergen Patient: Fadumo ALDANA Provider: Allan Gimenez MD :[id number] A ge:48 Y S ex:Female Date:03/29/2024 Address:[address], [id number] Subjective: * Chief Complaints: * S CIT - Traditional Schedule Allergy Immunotherapy * HPI: * Introduction: The patient is here for scheduled immunotherapy. Please see the attached specialty form regarding the specifics of the administration of these vaccines. As per our protocol, they must undergo a screening health questionnaire (medication changes, reaction(s) to last immunotherapy dose(s), current health status, ACT (if appropriate), self-injectable epinephrine on patient(?) and peak flow (if appropriate)). Also, the patient must wait in our office for 30 minutes after receiving the vaccine(s). Furthermore, every patient must have an epinephrine pen (self-injectable) with them at the time of administration--and carry if for the following 1.5 hours after they leave our office. The patient must also have taken their antihistamine the day of the injection, preferably 2 hours prior. The consent form for SCIT (subcutaneous immunotherapy) is on file. * Medical History: * Surgical History: * Hospitalization/Major Diagno stic Procedure: * Medications: T akingTRAMADOL 50 mg tablet 1 tab(s) orally every 6 hours NABUMETONE 500 mg tablet 2 tab(s) orally once a day PROTONIX 40 mg delayed release tablet 1 tab(s) orally once a day TRAZODONE 50 mg tablet 1 tab(s) orally Qday AZURETTE biphasic tablet 1 tab(s) orally once a day BACLOFEN 5 mg tablet 1.5 tab(s) orally Qday EPINASTINE OPHTHALMIC 0.05% solution 1 gtt in each affected eye 2 times a day SINGULAIR 10 mg tablet 1 tab(s) orally once a day ZYRTEC 10 mg tablet 1 tab(s) orally once a day AUVI -Q 0.3 mg kit as directed intramuscularly once ADVAIR HFA CFC free 115 mcg-21 mcg/inh aerosol inhale 2 puffs by mouth twice daily with spacer inhaled 2 times a day SLYND 4 mg tablet 1 tab(s) orally once a day OMEPRAZOLE 40 mg delayed release capsule 1 cap(s) orally once a day MELOXICAM 7.5 mg tablet 1 tab(s) orally once a day OXYBUTYNIN 5 mg/24 hours tablet, extended release 1 tab(s) orally once a day PROZAC 20 mg capsule 1 cap(s) orally once a day LOSARTAN 25 mg tablet 1 tab(s) orally once a day EPIPEN 2-JULIAN 0.3 mg kit as directed intramuscularly once FLONASE 50 mcg/inh spray 1 spray(s) intranasally once a day ADVAIR HFA 115 mcg-21 mcg Aerosol USE 2 INHALATIONS ORALLY TWICE DAILY WITH SPACER (NEED FOLLOW-UP FOR FURTHERREFILLS) WIXELA INHUB 250 mcg-50 mcg powder 1 INH inhaled 2 times a day FLUTICASONE PROPIONATE 50 mcg/inh spray 1 spray(s) in each nostril twice a day AZELASTINE NASAL 137 mcg/inh spray 2 spray(s) intranasally 2 times a day Albuterol Sulfate HFA 108 (90 Base) MCG/ACT Aerosol Solution 1 puff as needed Inhalation every 4 hrs traMADol HCl 50 MG Tablet 1 tab(s) orally every 6 hours Nabumetone 500 MG Tablet 2 tab(s) orally once a day Protonix 40 MG Tablet Delayed Release 1 tab(s) orally once a day traZODone HCl 50 MG Tablet 1 tab(s) orally Qday Azurette 0.15-0.02/0.01 MG (21/5) Tablet 1 tab(s) orally once a day Baclofen 5 MG Tablet 1.5 tab(s) orally Qday Epinastine HCl 0.05 % Solution 1 gtt in each affected eye 2 times a day ZyrTEC Allergy 10 MG Tablet 1 tab(s) orally once a day SIT (TRADITIONAL) VARIABLE SEE RECORD PER SCHEDULE SC PER SCHEDULE , Notes to Pharmacist: *Please review for potential replacement for e-prescription and drug interaction check*Auvi-Q 0.3 MG/0.3ML Solution Auto- injector as directed intramuscularly once AEROCHAMBER MDI SPACER - MOUTHPIECE (ADULT) N/A SPACER FOR MDI USE DIRECTED PO PER ASTHMA ACTION PLAN , Notes to Pharmacist: *Please review for potential replacement for e-prescription and drug interaction check*Advair HFA 115-21 MCG/ACT Aerosol inhale 2 puffs by mouth twice daily with spacer inhaled 2 times a day Slynd 4 MG Tablet 1 tab(s) orally once a day Omeprazole 40 MG Capsule Delayed Release 1 cap(s) orally once a day Meloxicam 7.5 MG Tablet 1 tab(s) orally once a day oxyBUTYnin Chloride ER 5 MG Tablet Extended Release 24 Hour 1 tab(s) orally once a day PROzac 20 MG Capsule 1 cap(s) orally once a day Losartan Potassium 25 MG Tablet 1 tab(s) orally once a day EpiPen 2-Julian 0.3 MG/0.3ML Solution Auto-injector as directed intramuscularly once Flonase Allergy Relief 50 MCG/ACT Suspension 1 spray(s) intranasally once a day Advair HFA 115 MCG-21 MCG AEROSOL USE 2 INHALATIONS ORALLY TWICE DAILY WITH SPACER (NEED FOLLOW-UP FOR FURTHERREFILLS) , Notes to Pharmacist: *Please review and pick correct strength-formulation from Digital Vault options. If intended option is not shown, discontinue and re-order from Quick Search*Wixela Inhub 250 MCG-50 MCG POWDER 1 INH INHALED 2 TIMES A DAY , Notes to Pharmacist: *Please review and pick correct strength-formulation from Digital Vault options. If intended option is not shown, discontinue and re-order from Quick Search*Fluticasone Propionate 50 MCG/ACT Suspension 1 spray(s) in each nostril twice a day PROVENTIL (ALBUTEROL) HFA 90 MCG/INH AEROSOL 2 PUFF(S) INHALED EVERY 4-6 HOURS , Notes to Pharmacist: *Please review for potential replacement for e- prescription and drug interaction check*Montelukast Sodium 10 MG Tablet TAKE 1 TABLET DAILY Azelastine HCl 137 MCG/SPRAY Solution 2 spray(s) intranasally 2 times a day Taking TRAMADOL 50 mg tablet 1 tab(s) orally every 6 hours Taking NABUMETONE 500 mg tablet 2 tab(s) orally once a day Taking PROTONIX 40 mg delayed release tablet 1 tab(s) orally once a day Taking TRAZODONE 50 mg tablet 1 tab(s) orally Qday Taking AZURETTE biphasic tablet 1 tab(s) orally once a day Taking BACLOFEN 5 mg tablet 1.5 tab(s) orally Qday Taking EPINASTINE OPHTHALMIC 0.05% solution 1 gtt in each affected eye 2 times a day Taking SINGULAIR 10 mg tablet 1 tab(s) orally once a day Taking ZYRTEC 10 mg tablet 1 tab(s) orally once a day Taking AUVI -Q 0.3 mg kit as directed intramuscularly once Taking ADVAIR HFA CFC free 115 mcg-21 mcg/inh aerosol inhale 2 puffs by mouth twice daily with spacer inhaled 2 times a day Taking SLYND 4 mg tablet 1 tab(s) orally once a day Taking OMEPRAZOLE 40 mg delayed release capsule 1 cap(s) orally once a day Taking MELOXICAM 7.5 mg tablet 1 tab(s) orally once a day Taking OXYBUTYNIN 5 mg/24 hours tablet, extended release 1 tab(s) orally once a day Taking PROZAC 20 mg capsule 1 cap(s) orally once a day Taking LOSARTAN 25 mg tablet 1 tab(s) orally once a day Taking EPIPEN 2-JULIAN 0.3 mg kit as directed intramuscularly once Taking FLONASE 50 mcg/inh spray 1 spray(s) intranasally once a day Taking ADVAIR HFA 115 mcg-21 mcg Aerosol USE 2 INHALATIONS ORALLY TWICE DAILY WITH SPACER (NEED FOLLOW-UP FOR FURTHERREFILLS) Taking WIXELA INHUB 250 mcg-50 mcg powder 1 INH inhaled 2 times a day Taking FLUTICASONE PROPIONATE 50 mcg/inh spray 1 spray(s) in each nostril twice a day Taking AZELASTINE NASAL 137 mcg/inh spray 2 spray(s) intranasally 2 times a day Taking Albuterol Sulfate HFA 108 (90 Base) MCG/ACT Aerosol Solution 1 puff as needed Inhalation every 4 hrs Taking traMADol HCl 50 MG Tablet 1 tab(s) orally every 6 hours Taking Nabumetone 500 MG Tablet 2 tab(s) orally once a day Taking Protonix 40 MG Tablet Delayed Release 1 tab(s) orally once a day Taking traZODone HCl 50 MG Tablet 1 tab(s) orally Qday Taking Azurette 0.15-0.02/0.01 MG (21/5) Tablet 1 tab(s) orally once a day Taking Baclofen 5 MG Tablet 1.5 tab(s) orally Qday Taking Epinastine HCl 0.05 % Solution 1 gtt in each affected eye 2 times a day Taking ZyrTEC Allergy 10 MG Tablet 1 tab(s) orally once a day Taking SIT (TRADITIONAL) VARIABLE SEE RECORD PER SCHEDULE SC PER SCHEDULE , Notes to Pharmacist: *Please review for potential replacement for e-prescription and drug interaction check*Taking Auvi-Q 0.3 MG/0.3ML Solution Auto-injector as directed intramuscularly once Taking AEROCHAMBER MDI SPACER - MOUTHPIECE (ADULT) N/A SPACER FOR MDI USE DIRECTED PO PER ASTHMA ACTION PLAN , Notes to Pharmacist: *Please review for potential replacement for e-prescription and drug interaction check*Taking Advair HFA 115-21 MCG/ACT Aerosol inhale 2 puffs by mouth twice daily with spacer inhaled 2 times a day Taking Slynd 4 MG Tablet 1 tab(s) orally once a day Taking Omeprazole 40 MG Capsule Delayed Release 1 cap(s) orally once a day Taking Meloxicam 7.5 MG Tablet 1 tab(s) orally once a day Taking oxyBUTYnin Chloride ER 5 MG Tablet Extended Release 24 Hour 1 tab(s) orally once a day Taking PROzac 20 MG Capsule 1 cap(s) orally once a day Taking Losartan Potassium 25 MG Tablet 1 tab(s) orally once a day Taking EpiPen 2-Julian 0.3 MG/0.3ML Solution Auto-injector as directed intramuscularly once Taking Flonase Allergy Relief 50 MCG/ACT Suspension 1 spray(s) intranasally once a day Taking Advair HFA 115 MCG-21 MCG AEROSOL USE 2 INHALATIONS ORALLY TWICE DAILY WITH SPACER (NEED FOLLOW-UP FOR FURTHERREFILLS) , Notes to Pharmacist: *Please review and pick correct strength-formulation from Digital Vault options. If intended option is not shown, discontinue and re-order from Quick Search*Taking Wixela Inhub 250 MCG-50 MCG POWDER 1 INH INHALED 2 TIMES A DAY , Notes to Pharmacist: *Please review and pick correct strength-formulation from Digital Vault options. If intended option is not shown, discontinue and re-order from Quick Search*Taking Fluticasone Propionate 50 MCG/ACT Suspension 1 spray(s) in each nostril twice a day Taking PROVENTIL (ALBUTEROL) HFA 90 MCG/INH AEROSOL 2 PUFF(S) INHALED EVERY 4-6 HOURS , Notes to Pharmacist: *Please review for potential replacement for e-prescription and drug interaction check*Taking Montelukast Sodium 10 MG Tablet TAKE 1 TABLET DAILY Taking Azelastine HCl 137 MCG/SPRAY Solution 2 spray(s) intranasally 2 times a day Not-Taking/PRNSINGULAIR 10 mg tablet 1 tab(s) orally once a day , Notes to Pharmacist: needs follow-up for more refillsFLONASE 50 mcg/inh spray 1 spray(s) intranasally once a day FLUTICASONE NASAL 50 mcg/inh spray 1 spray(s) in each nostril once a day AZELASTINE NASAL 137 mcg/inh spray 2 spray(s) intranasally 2 times a day Singulair 10 MG Tablet 1 tab(s) orally once a day , Notes to Pharmacist: needs follow-up for more refillsFlonase Allergy Relief 50 MCG/ACT Suspension 1 spray(s) intranasally once a day Fluticasone Propionate 50 MCG/ACT Suspension 1 spray(s) in each nostril once a day Azelastine HCl 137 MCG/SPRAY Solution 2 spray(s) intranasally 2 times a day Not-Taking/PRN SINGULAIR 10 mg tablet 1 tab(s) orally once a day , Notes to Pharmacist: needs follow-up for more refillsNot-Taking/PRN FLONASE 50 mcg/inh spray 1 spray(s) intranasally once a day Not-Taking/PRN FLUTICASONE NASAL 50 mcg/inh spray 1 spray(s) in each nostril once a day Not-Taking/PRN AZELASTINE NASAL 137 mcg/inh spray 2 spray(s) intranasally 2 times a day Not-Taking/PRN Singulair 10 MG Tablet 1 tab(s) orally once a day , Notes to Pharmacist: needs follow-up for more refillsNot-Taking/PRN Flonase Allergy Relief 50 MCG/ACT Suspension 1 spray(s) intranasally once a day Not-Taking/PRN Fluticasone Propionate 50 MCG/ACT Suspension 1 spray(s) in each nostril once a day Not- Taking/PRN Azelastine HCl 137 MCG/SPRAY Solution 2 spray(s) intranasally 2 times a day Objective: * Vitals: Assessment: * Assessment: 1. A llergic rhinitis due to pollen - J30.1 (Primary) 2 . O ther allergic rhinitis - J30.89 3 . A llergic rhinitis due to animal (cat) (dog) hair and dander - J30.81 4 . O ther chronic allergic conjunctivitis - H10.45 Plan: * Treatment: * Procedure Codes: 9 5117 IMMUNOTHERAPY INJECTIONS * Follow Up: 1 Week * Billing Information: * Visit Code: * Procedure Codes: 80817 IMMUNOTHERAPY INJECTIONS. * [employer]TE[employer] ENGINEER Sign off status: Completed true * Provider: Allan Gimenez MD Date: 0 03/29/2024 Generated for Willie nunes/Betsy/Andrwe on: 0 04/23/2024 08:20 AM [employer]INTENA[employer]CE ENGINEER History and Physical Notes * HPI (History of Present Illness) Category Sub-Category Detail Notes Category Not es *Introduction The patient is here for scheduled immunotherapy. Please see the attached specialty form regarding the specifics of the administration of these vaccines. As per our protocol, they must undergo a screening health questionnaire (medication changes, reaction(s) to last immunotherapy dose(s), current health status, ACT (if appropriate), self-injectable epinephrine on patient(?) and peak flow (if appropriate)). Also, the patient must wait in our office for 30 minutes after receiving the vaccine(s). Furthermore, every patient must have an epinephrine pen (self-injectable) with them at the time of administration--and carry if for the following 1.5 hours after they leave our office. The patient must also have taken their antihistamine the day of the injection, preferably 2 hours prior. The consent form for SCIT (subcutaneous immunotherapy) is on file.
--- OUTSIDE RECORDS SUMMARY | 2024-04-23 08:20 | XMS_ITS | Referral Summary ---
Author Organization [facility] Address [address] [place] [address] Care Team Providers Care Phlebotomist Associate Name Role Phone Marcus Chin MD Primary Care Provider Source Comments [facility],non-[facility] Affiliates and Associated Physician Practices is amultiple site organization consisting of ambulatory clinics and hospital sitesin [place], [place], [place] and [place]. This disclosure is being madepursuant to the Care Everywhere program and may not contain all information available regarding this patient. Last updated 17.[facility] Encounters Date Type Department Care Team Description 04/05/2024 Travel 04/05/2024 9:00 AM CLOCK AND WATCH HANDS DIPPER - 04/05/2024 11:59 PM CLOCK AND WATCH HANDS DIPPER Hospital Encounter [facility] Imaging Services - Radiology [address] [place] [address] Oscar Adler MD Discharge Disposition: Home or Self Care 04/05/2024 3:00 PM CLOCK AND WATCH HANDS DIPPER Office Visit [facility] [address] [place] [address] Daisy Landis APRN-SALIMA Vulvar itching (Primary Dx); Vaginal discharge 03/22/2024 Travel 03/16/2024 7:15 AM CLOCK AND WATCH HANDS DIPPER Video Visit [facility] Weight Management Services [address], [address] [place] [address] Morbid obesity (HCC) 02/23/2024 7:00 AM CLOCK AND WATCH HANDS DIPPER Video Visit [facility] Weight Management Services [address], [address] [place] [address] Morbid obesity ([facility]) 02/16/2024 9:45 AM CLOCK AND WATCH HANDS DIPPER Clinical Support [facility] Weight Management Services [address], [address] [place] [address] Morbid obesity ([facility]) 01/27/2024 3:00 PM CLOCK AND WATCH HANDS DIPPER Office Visit [facility] Weight Management Services [address], [address] [place] [address] Oscar Adler MD Morbid obesity ([facility]) (Primary Dx); Gastroesophageal reflux disease with esophagitis without hemorrhage from Last 3 Months Allergies Active Allergy Reactions Criticality Noted Date [...] fluticasone propionate (FLONASE) 50 MCG/ACT nasal spray [place] 1 (one) spray to 2 (two) sprays [...] suppository 2 09/27/2023 Active nystatin/triamci nolone (Mycolog) 473088-3.1 UNIT/GM-% ointmentIndicati ons:Acute vulvitis Use to vulvar [...] HAWKINS MD Esophageal reflux 12/12/2011 Overview (12/05/2019): SARINA HAWKINS MD Social History Tobacco Use Types Packs/Day Years [...] Sex Assigned at Female 03/22/2024 9:30 AM CLOCK AND WATCH HANDS DIPPER Gender Identity Not on file Sexual Orientation Not on file Last Filed Vital Signs Vital Sign Reading Time Taken Comments Blood Pressure 132/80 04/05/2024 3:13 PM CLOCK AND WATCH HANDS DIPPER Pulse 84 01/27/2024 2:56 PM CLOCK AND WATCH HANDS DIPPER Temperature 36.3 C (97.4 F) 01/27/2024 2:56 PM CLOCK AND WATCH HANDS DIPPER Respiratory Rate - - Oxygen Saturation 98% 01/27/2024 2:56 PM CLOCK AND WATCH HANDS DIPPER Inhaled Oxygen Concentration - - Weight 121.6 kg (268 lb) 04/05/2024 3:13 PM CLOCK AND WATCH HANDS DIPPER Height 165.1 cm (5' 5 ) 04/05/2024 3:13 PM CLOCK AND WATCH HANDS DIPPER Body Mass Index 44.6 04/05/2024 3:13 PM CLOCK AND WATCH HANDS DIPPER Plan of Treatment Upcoming Encounters Date Type Department Care Team (Late st Contact Info) Description 04/25/2024 3:45 PM CLOCK AND WATCH HANDS DIPPER Clinical Support [facility] Weight Management Services [address], [address] [place] [address] 10/04/2024 3:00 PM CDT Office Visit [facility] - [facility] [address] [place] [address] Daisy Landis, LOCATION DIRECTOR-WHOLESALE BUYER [address] [address] Procedures Procedure Name Priority Date/Time Associated Diagnosis Comments FUNGUS GEORGE - POINT OF CARE (AMB) [facility] Routine 04/05/2024 3:47 PM CLOCK AND WATCH HANDS DIPPER Vaginal discharge WET PREP - POINT OF CARE (AMB) [facility] Routine 04/05/2024 3:46 PM CLOCK AND WATCH HANDS DIPPER Vaginal discharge PH FLUID - POCT (AMB) [facility] Routine 04/05/2024 3:46 PM CLOCK AND WATCH HANDS DIPPER Vaginal discharge FL UGI W AIR CONTRAST Routine 04/05/2024 9:51 AM CLOCK AND WATCH HANDS DIPPER Gastroesophageal reflux disease with esophagitis without hemorrhage Morbid obesity (HCC) from Last 3 Months Results * FUNGUS GEORGE - POINT OF CARE (AMB) [facility] (04/05/2024 3:47 PM CLOCK AND WATCH HANDS DIPPER) GEORGE Prep No [facility] [address] Fluid BODY FLUID SPECIMEN / Unknown 04/05/2024 3:47 PM CLOCK AND WATCH HANDS DIPPER Daisy Landis LOCATION DIRECTOR-WHOLESALE BUYER LAB - POINT OF CARE ORDERABLES [facility] [address] [place] [address], [facility] [phone] * PH FLUID - POCT (AMB) [facility] (04/05/2024 3:46 PM CLOCK AND WATCH HANDS DIPPER) pH Vaginal 4.5 [facility] [address] Fluid ENTIRE VAGINA / Unknown 04/05/2024 3:46 PM CLOCK AND WATCH HANDS DIPPER Daisy Landis APRN-WHOLESALE BUYER LAB - POINT OF CARE ORDERABLES [facility] [address] [place] [address], [facility] [phone] * WET PREP - POINT OF CARE (AMB) [facility] (04/05/2024 3:46 PM CLOCK AND WATCH HANDS DIPPER) pH Wet Prep 4.[address] [facility] [address] Yeast Wet Prep no [facility] RE [address] Trichomonas Wet Prep None [facility] [address] Bacteria Wet Prep rare WBC [facility] [address] Whiff Test no [facility] [address] BODY FLUID SPECIMEN / Unknown 04/05/2024 3:46 PM CLOCK AND WATCH HANDS DIPPER Daisy Landis LOCATION DIRECTOR-WHOLESALE BUYER LAB - POINT OF CARE ORDERABLES [facility] [address] [place] [address], [facility] [phone] * FL Ugi W Air Contrast (04/05/2024 9:51 AM CLOCK AND WATCH HANDS DIPPER) Anatomical Region Laterality Modality Abdomen Computed Radiogr aphy Impressions 04/05/2024 10:49 AM CLOCK AND WATCH HANDS DIPPER IMPRESSION: Small hiatal hernia and mild witnessed gastroesophageal reflux > Interpreting Provider: Roberto Funk JR, MD on 04/05/2024 10:49 AM Narrative 04/05/2024 10:49 AM CLOCK AND WATCH HANDS DIPPER AIR CONTRAST UPPER GI INDICATION: Morbid obesity, [...] ES from Last 3 Months Care Teams Phlebotomist Associate Relationship Specialty Start Date End Date Marcus Chin MD [address] [facility] [address] [place] [address] PCP - General Family Medicine 04/05/24
--- OUTSIDE RECORDS SUMMARY | 2024-04-23 08:20 | XMS_ITS | Continuity of Care Document ---
Author Organization [facility] Address [address] [place] [address] Phone Care Team Providers Care Choker Hooker Name Role Phone Charito TONIEJacob Unavailable Unavailable Allergies, Adverse Reactions, Alerts Substance Reaction Status Criticality Sulfa (Sulfonamide Antibiotics) Active No Information Medications Medication Instructions Dosage Effective Dates (start - stop) Status Comments Pulmicort Flexhaler 90 mcg/actuation breath activated - Active Zyrtec 10 mg tablet - Active nabumetone 500 mg tablet - A ctive Protonix 20 mg tablet,delayed release - Active trazodone 50 mg tablet - Act andrews albuterol sulfate (bulk) powder - Active azelastine 0.15 % (205.5 mcg) nasal spray - Active epinastine 0.05 % eye drops prn ou - Active Procedures Procedure Date Wellness/Screening Photo REFRACTION EYE EXAM ESTABLISHED PATIENT EYE EXAM, EXISTING PATIENT VISION REFRACTION OPTIONAL UPDATE Single Vision Lens Lens Polycarb A/R Crizal Avance UV UV Lens Coating EYE EXAM, NEW PATIENT VISION REFRACTION OPTIONAL UPDATE Vision svcs frames purchases Single Vision Lens Lens Polycarb A/R Crizal Easy UV UV Lens Advance Directives Directive Yes / No Effective Date File Name No Information Encounters Encounter Description Practice Location Reason(s) For Visit Diagnoses Date Provider Providers Copied on Encounter [facility], [address] [place] [address], [id number] , tel:[phone] [facility] No Information 0 Charito James. [address] [place] [address], [id number], . tel:[phone] [facility], [address] [place] [address], [id number] , tel:[phone] [facility] decreased vision (chief complaint)d ecreased vision (chief complaint) Hypermetropia, bilateralRegular astigmatism, bilateralPresbyop iaEncounter for exam of eye without abnormal finding 9 Charito James. [address] [place] [address], [id number], . tel:[phone] [facility], [address] [place] [address], [id number] , tel:[phone] [facility] no problems with vision and no complaints (chief complaint)n o problems with vision and no complaints (chief complaint) Hypermetropia, bilateral May-2 8 Charito James. [address] [place] [address], [id number], . tel:[phone] [facility], [address] [place] [address], [id number] , tel:[phone] [facility] No Information [address] [facility], [address] [place] [address], [id number] , tel:[phone] [facility] vision is not sharp and clear (chief complaint)v ision is not sharp and clear (chief complaint) Hypermetropia, bilateral Mar-0 8-201 6 No Information Family History Family Member Type Diagnosis Age At Onset Problem (finding) No family history of Di abetes mellitus Problem (finding) No family hist ory of Macular degeneration Problem (finding) No family history of Ca taracts Problem (finding) No family history of Gl aucoma Problem (finding) No family history of Hy pertension Payers Payer name Insurance type Covered alliance party ID Carol gill(s) FLO CI [id number] Social History Type Description Quantity Date Captured Comments Sex Female Smoking Status No Information Chief Complaint And Reason For Visit No Information Reason For Referral Reason For Referral No Information History Of Present Illness Encounter Date Complaint History Of Prese nt Illness decreased vision The 43 Year old female presents for F/U Hypermetropia OU. Pt reports decreased vision in the right eye and left eye since last exam ago. It affects near vision c gls. Pt states she bought OTC readers and they help a lot. Pt takes gls off and then puts readers on for up close work. Pt states DVA c gls is good OU. The patient denies pain or discomfort. Pt uses Art Tears PRN OU and Epinestine gtts PRN OU c relief. no problems with vis ion and no complaints The 41 Year old female presents for follow up Hypermetropia OU. Pt reports no problems with vision and no complaints in the right eye and left eye since last exam. Vision good, stable and constant D & N c gls.. The patient denies pain but complains of occasional [place] and strain. Using: Generic AT PRN OU with relief. vision is not sharp and clear Th e 39 Year old female presents for new patient dilated exam. Pt reports vision is not sharp and clear in the right or left eye. The onset was gradual with near and far vision. Pt states OU itch with allergies at imes and uses Epinastine gtt PRN (about 1xq 3 days) OU. Functional Status Date Functional Assessmen t No Information Instructions Date Instruction Additional Infor marcus Impression/Plan Follow up - Return i n 1 year with [facility] for Refract T & D. Impression/Plan - He althy eyes. No cataracts. No glaucoma. Slight change in Rx. Update is optional. When pt starts having more trouble with near vision, can go to a bifocal. Mar-08-2016 1 year with [facility]NT for refr ten dil OU. Related to Hypermetropia, bilateral Follow up - 1 year w ith JNT for refr ten dil OU. Related to Hypermetropia, bilateral Impression/Plan - Ey es look great. Everything is good and healthy. Can update the gls to sharpen dist vision. Does not need bifocal at this time but will be approaching the age where pt will notice difficulties at near. Related to Hypermetropia, bilateral Assessments Type Assessment Date No Information Patient Care Teams Name Effective Dates (start - stop) Status Members No Information
--- OUTSIDE RECORDS SUMMARY | 2024-04-23 08:20 | XMS_ITS ---
Author Organization [facility] Address [address] [place] [address] Care Team Providers Care Physical Therapy Director Name Role Phone Bonita Zuñiga Unavailable [phone] Facundo Gimenez Unavailable [phone] REASON FOR VISIT SCIT - Traditional Schedule Allergy Immunotherapy Medications Medication SIG (Take, Route, Frequency, Duration) Notes Start Date End Date Status Fluticasone Propionate 50 MCG/ACT 1 spray(s) in each nostril twice a day for 90 days 06/23/2023 Active Wixela Inhub 250 MCG-50 MCG 1 INH INHALED 2 TIMES A DAY for 30 DAYS *Please review and pick correct strength-formulat ion from Backdoor options. If intended option is not shown, discontinue and re-order from Quick Search* 06/23/2023 Active Azelastine HCl 137 MCG/SPRAY 2 spray(s) intranasally 2 times a day for 30 days Active PROVENTIL (ALBUTEROL) HFA 90 MCG/INH 2 PUFF(S) INHALED EVERY 4-6 HOURS for 30 DAYS *Please review for potential replacement for e-prescription and drug interaction check* Active Montelukast Sodium 10 MG TAKE 1 TABLET DAILY for 90 Active Azelastine HCl 137 MCG/SPRAY 2 spray(s) intranasally 2 times a day for 30 days Not-Taking Advair HFA 115 MCG-21 MCG USE 2 INHALATIONS ORALLY TWICE DAILY WITH SPACER (NEED FOLLOW-UP FOR FURTHERREFILLS) for 90 *Please review and pick correct strength-formulat ion from Backdoor options. If intended option is not shown, discontinue and re-order from Quick Search* Active Fluticasone Propionate 50 MCG/ACT 1 spray(s) in each nostril once a day for 90 days 03/15/2023 Not-Taking Singulair 10 MG 1 tab(s) orally once a day for 90 days needs follow-up for more refills Not-Taking Flonase Allergy Relief 50 MCG/ACT 1 spray(s) intranasally once a day for 90 days Not-Taking oxyBUTYnin Chloride ER 5 MG 1 tab(s) orally once a day for 30 day(s) Active PROzac 20 MG 1 cap(s) orally once a day for 30 day(s) Active EpiPen 2-Julian 0.3 MG/0.3ML as directed intramuscularly once Active Flonase Allergy Relief 50 MCG/ACT 1 spray(s) intranasally once a day for 90 days Active Losartan Potassium 25 MG 1 tab(s) orally once a day for 30 day(s) Active Omeprazole 40 MG 1 cap(s) orally once a day Active Meloxicam 7.5 MG 1 tab(s) orally once a day for 30 day(s) Active Advair HFA 115-21 MCG/ACT inhale 2 puffs by mouth twice daily with spacer inhaled 2 times a day for 90 days Active Slynd 4 MG 1 tab(s) orally once a day Active AEROCHAMBER MDI SPACER - MOUTHPIECE (ADULT) N/A DIRECTED PO PER ASTHMA ACTION PLAN *Please review for potential replacement for e-prescription and drug interaction check* Active Epinastine HCl 0.05 % 1 gtt in each affected eye 2 times a day for 90 days Active Baclofen 5 MG 1.5 tab(s) orally Qday Active Auvi-Q 0.3 MG/0.3ML as directed intramuscularly once for 30 day(s) Active ZyrTEC Allergy 10 MG 1 tab(s) orally once a day for 90 days Active SIT (TRADITIONAL) VARIABLE PER SCHEDULE SC PER SCHEDULE for TO BE DETERMINED *Please review for potential replacement for e-prescription and drug interaction check* Active Azurette 0.15-0.02/0.01 MG (01/08) 1 tab(s) orally once a day Active Protonix 40 MG 1 tab(s) orally once a day Active traZODone HCl 50 MG 1 tab(s) orally Qday Active traMADol HCl 50 MG 1 tab(s) orally every 6 hours Active Nabumetone 500 MG 2 tab(s) orally once a day Active AZELASTINE NASAL 137 mcg/inh 2 spray(s) intranasally 2 times a day for 30 days Not-Taking WIXELA INHUB 250 mcg-50 mcg 1 INH inhaled 2 times a day for 30 days 06/23/2023 Active AZELASTINE NASAL 137 mcg/inh 2 spray(s) intranasally 2 times a day for 90 days Active Albuterol Sulfate HFA 108 (90 Base) MCG/ACT 1 puff as needed Inhalation every 4 hrs 08/31/2023 Active FLUTICASONE PROPIONATE 50 mcg/inh 1 spray(s) in each nostril twice a day for 90 days 06/23/2023 Active ADVAIR HFA 115 mcg-21 mcg USE 2 INHALATIONS ORALLY TWICE DAILY WITH SPACER (NEED FOLLOW-UP FOR FURTHERREFILLS) for 90 Active FLUTICASONE NASAL 50 mcg/inh 1 spray(s) in each nostril once a day for 90 days 03/15/2023 Not-Taking SINGULAIR 10 mg 1 tab(s) orally once a day for 90 days needs follow-up for more refills Not-Taking FLONASE 50 mcg/inh 1 spray(s) intranasally once a day for 90 days Not-Taking FLONASE 50 mcg/inh 1 spray(s) intranasally once a day for 90 days Active OXYBUTYNIN 5 mg/24 hours 1 tab(s) orally once a day for 30 day(s) Active MELOXICAM 7.5 mg 1 tab(s) orally once a day for 30 day(s) Active EPIPEN 2-JULIAN 0.3 mg as directed intramuscularly once Active PROZAC 20 mg 1 cap(s) orally once a day for 30 day(s) Active LOSARTAN 25 mg 1 tab(s) orally once a day for 30 day(s) Active OMEPRAZOLE 40 mg 1 cap(s) orally once a day Active ADVAIR HFA CFC free 115 mcg-21 mcg/inh inhale 2 puffs by mouth twice daily with spacer inhaled 2 times a day for 90 days Active SLYND 4 mg 1 tab(s) orally once a day Active ZYRTEC 10 mg 1 tab(s) orally once a day for 90 days Active AUVI -Q 0.3 mg as directed intramuscularly once for 30 day(s) Active TRAZODONE 50 mg 1 tab(s) orally Qday Active AZURETTE biphasic 1 tab(s) orally once a day Active EPINASTINE OPHTHALMIC 0.05% 1 gtt in each affected eye 2 times a day for 90 days Active SINGULAIR 10 mg 1 tab(s) orally once a day for 90 days Active BACLOFEN 5 mg 1.5 tab(s) orally Qday Active NABUMETONE 500 mg 2 tab(s) orally once a day Active PROTONIX 40 mg 1 tab(s) orally once a day Active TRAMADOL 50 mg 1 tab(s) orally ever y 6 hours Active Encounters Encounter Location Date Provider Diagnosis [facility] [address] [place] [address] 04/12/2024 Facundo Gimenez Allergic rhinitis du e to pollen J30.1 ; Other allergic rhinitis J30.89 ; Allergic rhinitis due to animal (cat) (dog) hair and dander J30.81 and Other chronic allergic conjunctivitis H10.45 Assessments Encounter Date Diagnosis (ICD Code) Assessment Notes Treatment Notes Treatment Clinical Notes Section Notes 04/12/2024 Allergic rhinitis due to pollen (ICD-10 - J30.1) 04/12/2024 Other allergic rhinitis (ICD-10 - J30.89) 04/12/2024 Allergic rhinitis due to animal (cat) (dog) hair and dander (ICD-10 - J30.81) 04/12/2024 Other chronic allergic conjunctivitis (ICD-10 - H10.45) Plan Of Treatment Next Appt Details Follow Up: 1 Week, Reason: Provider Name:Facundo KarolCornelius Gimenez , 05/03/2024 04:30:00 PM, [address] [employer], [address] [place] [address], [phone], Provider Name:Facundo Gimenez , 05/31/2024 07:40:00 AM, [address] [employer], [address] [place] [address], [phone], Progress Notes * Fadumo BR[birth year]DOB:[birth year] (48 yo F)Acc No.[id number]:04/12/2024 SCIT-Aeroallergen Patient: Fadumo ALDANA Provider: Allan Gimenez MD :1975 A ge:48 Y S ex:Female Date:04/12/2024 Address:[place], [place] Subjective: * Chief Complaints: * S CIT [...] *Please review and pick correct strength-formulation from Backdoor options. If intended option is not shown, discontinue and re-order from Quick Search*Wixela Inhub 250 MCG-50 MCG POWDER 1 INH INHALED 2 TIMES A DAY , Notes to Pharmacist: *Please review and pick correct strength-formulation from Backdoor options. If intended option is not shown, [...] *Please review and pick correct strength-formulation from Backdoor options. If intended option is not shown, discontinue and re-order from Quick Search*Taking Wixela Inhub 250 MCG-50 MCG POWDER 1 INH INHALED 2 TIMES A DAY , Notes to Pharmacist: *Please review and pick correct strength-formulation from Backdoor options. If intended option is not shown, [...] Information: * Visit Code: * Procedure Codes: 05100 IMMUNOTHERAPY INJECTIONS. * ICAL ASSISTANT Sign off status: Completed true * Provider: Allan Gimenez MD Date: 0 04/12/2024 Generated for Willie nunes/Betsy/Andrew on: 04/23/2024 08:20 AM SURGICAL ASSISTANT History and Physical Notes * HPI (History [...]
--- OUTSIDE RECORDS SUMMARY | 2024-04-23 08:20 | XMS_ITS ---
Author Organization [facility] Address [address] [place] [address] Care Team Providers Care Cloth Dyeing Range Tender Name Role Phone Bonita Zuñiga Unavailable [phone] Facundo Gimenez Unavailable [phone] REASON FOR VISIT SCIT - Traditional Schedule Allergy Immunotherapy Medications Medication SIG (Take, Route, Frequency, Duration) Notes Start Date End Date Status oxyBUTYnin Chloride ER 5 MG 1 tab(s) orally once a day for 30 day(s) Active PROzac 20 MG 1 cap(s) orally once a day for 30 day(s) Active Losartan Potassium 25 MG 1 tab(s) orally once a day for 30 day(s) Active EpiPen 2-Julian 0.3 MG/0.3ML as directed intramuscularly once Active Flonase Allergy Relief 50 MCG/ACT 1 spray(s) intranasally once a day for 90 days Active Omeprazole 40 MG 1 cap(s) orally once a day Active Meloxicam 7.5 MG 1 tab(s) orally once a day for 30 day(s) Active AEROCHAMBER MDI SPACER - MOUTHPIECE (ADULT) N/A DIRECTED PO PER ASTHMA ACTION PLAN *Please review for potential replacement for e-prescription and drug interaction check* Active Advair HFA 115-21 MCG/ACT inhale 2 puffs by mouth twice daily with spacer inhaled 2 times a day for 90 days Active Slynd 4 MG 1 tab(s) orally once a day Active Baclofen 5 MG 1.5 tab(s) orally Qday Active Epinastine HCl 0.05 % 1 gtt in each affected eye 2 times a day for 90 days Active ZyrTEC Allergy 10 MG 1 tab(s) orally once a day for 90 days Active SIT (TRADITIONAL) VARIABLE PER SCHEDULE SC PER SCHEDULE for TO BE DETERMINED *Please review for potential replacement for e-prescription and drug interaction check* Active Auvi-Q 0.3 MG/0.3ML as directed intramuscularly once for 30 day(s) Active Protonix 40 MG 1 tab(s) orally once a day Active traZODone HCl 50 MG 1 tab(s) orally Qday Active Azurette 0.15-0.02/0.01 MG (/5) 1 tab(s) orally once a day Active traMADol HCl 50 MG 1 tab(s) orally every 6 hours Active Nabumetone 500 MG 2 tab(s) orally once a day Active Albuterol Sulfate HFA 108 (90 Base) MCG/ACT 1 puff as needed Inhalation every 4 hrs 08/31/2023 Active AZELASTINE NASAL 137 mcg/inh 2 spray(s) intranasally 2 times a day for 30 days Not-Taking WIXELA INHUB 250 mcg-50 mcg 1 INH inhaled 2 times a day for 30 days 06/23/2023 Active FLUTICASONE PROPIONATE 50 mcg/inh 1 spray(s) in each nostril twice a day for 90 days 06/23/2023 Active AZELASTINE NASAL 137 mcg/inh 2 spray(s) intranasally 2 times a day for 90 days Active SINGULAIR 10 mg 1 tab(s) orally once a day for 90 days needs follow-up for more refills Not-Taking FLONASE 50 mcg/inh 1 spray(s) intranasally once a day for 90 days Not-Taking ADVAIR HFA 115 mcg-21 mcg USE 2 INHALATIONS ORALLY TWICE DAILY WITH SPACER (NEED FOLLOW-UP FOR FURTHERREFILLS) for 90 Active FLUTICASONE NASAL 50 mcg/inh 1 spray(s) in each nostril once a day for 90 days 03/15/2023 Not-Taking FLONASE 50 mcg/inh 1 spray(s) intranasally once a day for 90 days Active LOSARTAN 25 mg 1 tab(s) orally once a day for 30 day(s) Active EPIPEN 2-JULIAN 0.3 mg as directed intramuscularly once Active MELOXICAM 7.5 mg 1 tab(s) orally once a day for 30 day(s) Active OXYBUTYNIN 5 mg/24 hours 1 tab(s) orally once a day for 30 day(s) Active PROZAC 20 mg 1 cap(s) orally once a day for 30 day(s) Active ZYRTEC 10 mg 1 tab(s) orally once a day for 90 days Active AUVI -Q 0.3 mg as directed intramuscularly once for 30 day(s) Active ADVAIR HFA CFC free 115 mcg-21 mcg/inh inhale 2 puffs by mouth twice daily with spacer inhaled 2 times a day for 90 days Active SLYND 4 mg 1 tab(s) orally once a day Active OMEPRAZOLE 40 mg 1 cap(s) orally once a day Active BACLOFEN 5 mg 1.5 tab(s) orally Qday Active EPINASTINE OPHTHALMIC 0.05% 1 gtt in each affected eye 2 times a day for 90 days Active SINGULAIR 10 mg 1 tab(s) orally once a day for 90 days Active TRAZODONE 50 mg 1 tab(s) orally Qday Active AZURETTE biphasic 1 tab(s) orally once a day Active TRAMADOL 50 mg 1 tab(s) orally ever y 6 hours Active NABUMETONE 500 mg 2 tab(s) orally once a day Active Montelukast Sodium 10 MG TAKE 1 TABLET DAILY for 90 Active PROTONIX 40 mg 1 tab(s) orally once a day Active Azelastine HCl 137 MCG/SPRAY 2 spray(s) intranasally 2 times a day for 30 days Active Azelastine HCl 137 MCG/SPRAY 2 spray(s) intranasally 2 times a day for 30 days Not-Taking Wixela Inhub 250 MCG-50 MCG 1 INH INHALED 2 TIMES A DAY for 30 DAYS *Please review and pick correct strength-formulat ion from [employer] options. If intended option is not shown, discontinue and re-order from Quick Search* 06/23/2023 Active Fluticasone Propionate 50 MCG/ACT 1 spray(s) in each nostril twice a day for 90 days 06/23/2023 Active PROVENTIL (ALBUTEROL) HFA 90 MCG/INH 2 [...] once a day for 90 days Not-Taking Advair HFA 115 MCG-21 MCG USE 2 INHALATIONS ORALLY TWICE DAILY WITH SPACER (NEED FOLLOW-UP FOR FURTHERREFILLS) for 90 *Please review and pick correct strength-formulat ion from [employer] options. If intended option is not shown, discontinue and re-order from Quick Search* Active Encounters Encounter Location Date Provider Diagnosis [facility] - [place] [address] [place] [address] 04/02/2024 Facundo Gimenez Allergic rhinitis du e to pollen J30.1 ; Other allergic rhinitis J30.89 ; Allergic rhinitis due to animal (cat) (dog) hair and dander J30.81 and Other chronic allergic conjunctivitis H10.45 Assessments Encounter Date Diagnosis (ICD Code) Assessment Notes Treatment Notes Treatment Clinical Notes Section Notes 04/02/2024 Allergic rhinitis due to pollen (ICD-10 - J30.1) 04/02/2024 Other allergic rhinitis (ICD-10 - J30.89) 04/02/2024 Allergic rhinitis due to animal (cat) (dog) hair and dander (ICD-10 - J30.81) 04/02/2024 Other chronic allergic conjunctivitis (ICD-10 - H10.45) Plan Of Treatment Next Appt Details Follow Up: 1 Week, Reason: Provider Name:Facundo KarolCornelius Gimenez , 05/03/2024 04:30:00 PM, [address], [address] [place] [address], [id number], Provider Name:Facundo KarolCornelius Gimenez , 05/31/2024 07:40:00 AM, [address], [place], [address], Progress Notes * Fadumo BROCKDOB:[birth year] (48 yo F)Acc No.[id number]:04/02/2024 SCIT-Aeroallergen Patient: Fadumo ALDANA Provider: Allan Gimenez MD :1975 A ge:48 Y S ex:Female Date:04/02/2024 Address:[address] [place], [id number] Subjective: * Chief Complaints: * S CIT [...] *Please review and pick correct strength-formulation from [employer] options. If intended option is not shown, discontinue and re-order from Quick Search*Wixela Inhub 250 MCG-50 MCG POWDER 1 INH INHALED 2 TIMES A DAY , Notes to Pharmacist: *Please review and pick correct strength-formulation from [employer] options. If intended option is not shown, [...] *Please review and pick correct strength-formulation from [employer] options. If intended option is not shown, discontinue and re-order from Quick Search*Taking Wixela Inhub 250 MCG-50 MCG POWDER 1 INH INHALED 2 TIMES A DAY , Notes to Pharmacist: *Please review and pick correct strength-formulation from [employer] options. If intended option is not shown, [...] Information: * Visit Code: * Procedure Codes: 95319 IMMUNOTHERAPY INJECTIONS. * NING CUSTODIAN Sign off status: Completed true * Provider: Allan Gimenez MD Date: 0 04/02/2024 Generated for Willie nunes/Betsy/Andrew on: 0 04/23/2024 08:20 AM CLEANING CUSTODIAN History and Physical Notes * HPI (History [...]
--- OUTSIDE RECORDS SUMMARY | 2024-04-23 08:20 | XMS_ITS | Encounter Summary ---
Author Organization [facility] Address [address] [facility] [place] [address] Phone Care Team Providers Care Director Of Dietary Name Role Phone Yasmani Simons MD Primary Care Provider [phone] Reason for Visit * Reason Comments Medication Refill trazodone, nabumeton e Encounter Details Date Type Department Care Team (Late st Contact Info) Description 04/07/2020 Refill [facility] - [facility] - [place] [facility] [address] [place] [address] Yasmani Simons MD [address] [place] [address] Medication Refill (trazodone, nabumetone) Social History Tobacco Use Types Packs/Day Years Used Date Smoking Tobacco: Former Cigarettes 1 14 0 06/24/1994 - 06/24/2008 Smokeless Tobacco: Never Alcohol Use Standard Drinks/Week Comments Yes 0 (1 standard drink = 0.6 oz pur e alcohol) rare PHQ-2 Answer Date Recorded PHQ-2 Score 0 11/10/2018 Comments No Sex and Gender Information Value Date Recorded Sex Assigned at Not on file Legal Sex 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 FARHEEN: 08/14/19 NOV: Visit date not found Last Ordered: 04/13/19 Medication(s) pended and routed for review. AND MAXILLOFACIAL PATHOLOGIST documented in this encounter Plan of Treatment Not on file documented as of this encounter Visit Diagnoses Not on filedocumented in this encounter Additional Health Concerns Assessment Noted Time PHQ-9 Depression Total Score: 0 07/15/19 19 10:47 AM CDT documented as of this encounter Care Teams Director Of Dietary Relationship Specialty Start Date End Date Yasmani Simons MD [address] [place] [address] PCP - General 05/05/10 documented as of this encounter
[2024-04-23 08:21] VITALS: BP 144/82; PULSE 85; RESP 18; TEMP 36.6; O2SAT 98
--- OUTSIDE RECORDS SUMMARY | 2024-04-23 08:21 | XMS_ITS | Continuity of Care Document ---
Author Organization [facility] Address [address] [place] [address] Phone Care Team Providers Care Legal Support Manager Name Role Phone Charito TONIEJacob Unavailable Unavailable [...] Diagnoses Date Provider Providers Copied on Encounter [facility], [address] [place] [address], [id number] , tel:[phone] [facility] No Information 0 Charito James. [address] [place] [address], [id number], . tel:[phone] [facility], [address] [place] [address], [id number] , tel:[phone] [facility] decreased vision (chief complaint)d ecreased vision (chief complaint) Hypermetropia, bilateralRegular astigmatism, bilateralPresbyop iaEncounter for exam of eye without abnormal finding 9 Charito James. [address] [place] [address], [id number], . tel:[phone] [facility], [address] [place] [address], [id number] , tel:[phone] [facility] no problems with vision and no complaints (chief complaint)n o problems with vision and no complaints (chief complaint) Hypermetropia, bilateral May-2 8 Charito James. [address] [place] [address], [id number], . tel:[phone] [facility], [address] [place] [address], [id number] , tel:[phone] [facility] No Information 2 6 No Information [facility], [address] [place] [address], [id number] , tel:[phone] [facility] vision is not sharp and clear (chief complaint)v ision is not sharp and clear (chief complaint) Hypermetropia, bilateral Mar-0 8-201 6 No Information Family History Family Member Type Diagnosis Age At Onset Problem (finding) No family history of Hy pertension Problem (finding) No family history of Gl aucoma Problem (finding) No family history of Ca taracts Problem (finding) No family hist ory of Macular degeneration Problem (finding) No family history of Di abetes mellitus Payers Payer name Insurance type Covered alliance party ID Carol gill(s) FLO [id number] Social History Type Description Quantity Date Captured [...]
--- OUTSIDE RECORDS SUMMARY | 2024-04-23 08:21 | XMS_ITS | Clinical Summary ---
Author Organization [facility] Address [address] [place] [address] Care Team Providers Care Manager Night Name Role Phone OtisBrandin DPM Unavailable [phone] Elsy VII, Samuel Pang MD Primary Care Prov ider Allergies Active Allergy Reactions Criticality Noted Date Comments Dander Other (see comment) 07/20/2023 Asthma, runny nose, congestion Dog Epithelium (Canis Lupus Familiaris) Other (see comment) 07/20/2023 Asthma, runny nose, congestion Dust Mite Extract Other (see comment) Asthma, runny nose, congestion Molds & Smuts Unknown 07/20/2023 Sulfa Antibiotics Nausea and Vomiting,Other (see comment) High 05/13/2013 When she was in her 20s Medications Azelastine HCl 0.15 % Solution 2 puffs by Nasal route. Active Epinastine HCl 0.05 % Solution Place 1 drop into both eyes daily as needed. 015 Active fluticasone propionate 50 MCG/ACT nasal spray 1-2 sprays by Nasal route daily. 012 Active Fluticasone-Salm eterol 113-14 MCG/ACT AEROSOL POWDER, BREATH ACTIVATED as needed. 020 Active Spacer/Aero-Hold ing Chambers (VALVED HOLDING CHAMBER) Device USE DIRECTED PER ASTHMA ACTION PLAN 021 Active hydrocortisone [address] 1 intravaginally twice weekly 021 Active Albuterol Sulfate 108 (90 Base) MCG/ACT AEROSOL POWDER, BREATH ACTIVATED Inhale 2 puffs into the lungs as needed. Active traMADol (ULTRAM) 50 MG tabletIndication s:Chronic Pain Take 1 tablet (50 mg total) by mouth daily as needed for Pain. Indications: Chronic Pain 30 tablet 022 Active cetirizine (ZYRTEC) 10 MG tabletIndication s:Allergic rhinitis, unspecified seasonality, unspecified trigger Take 1 tablet (10 mg total) by mouth nightly. 90 tablet 1 023 Active Drospirenone (SLYND OR) Take 1 tablet by mouth daily. control Active famotidine (PEPCID) 10 MG tabletIndication s:Gastroesophage al reflux disease, unspecified whether esophagitis present Take 1 tablet (10 mg total) by mouth nightly as needed for Heartburn. 30 tablet 2 024 Active EPINEPHrine (AUVI-Q) 0.3 MG/0.3ML injection Inject 0.3 mLs (0.3 mg total) into the muscle as needed for Anaphylaxis. Active ondansetron (ZOFRAN-ODT) 4 MG disintegrating tablet Take 1 tablet (4 mg total) by mouth every 8 (eight) hours as needed for Nausea. 20 tablet 024 Active baclofen (LIORESAL) 10 MG tabletIndication s:Arthritis Take 0.5-1 tablets (5-10 mg total) by mouth 2 (two) times daily as needed. 30 tablet 024 Active montelukast (SINGULAIR) 10 MG tabletIndication s:Allergic rhinitis, unspecified seasonality, unspecified trigger Take 1 tablet (10 mg total) by mouth nightly at bedtime. 90 tablet 1 024 Active FLUoxetine (PROZAC) 10 MG capsuleIndicatio ns:Anxiety and depression Take 1 capsule (10 mg total) by mouth daily. 90 capsule 3 025 Active losartan (COZAAR) 25 MG tabletIndication s:Primary hypertension Take 1 tablet (25 mg total) by mouth daily. 90 tablet 3 025 Active omeprazole (PRILOSEC) 40 MG capsuleIndicatio ns:Gastroesophag eal reflux disease, unspecified whether esophagitis present Take 1 capsule (40 mg total) by mouth daily. 90 capsule 3 025 Active oxybutynin XL (DITROPAN-XL) 10 MG 24 hr tabletIndication s:OAB (overactive bladder) Take 1 tablet (10 mg total) by mouth daily. 90 tablet 3 025 Active traZODone (DESYREL) 50 MG tabletIndication s:Insomnia, unspecified type Take 1 tablet (50 mg total) by mouth nightly at bedtime. 90 tablet 3 025 Active omeprazole (PRILOSEC) 20 MG capsuleIndicatio ns:Gastroesophag eal reflux disease, unspecified whether esophagitis present Take 1 capsule (20 mg total) by mouth daily. 90 capsule 024 2024 Discontinued(P t. elected to discontinue med) azithromycin (ZITHROMAX) 200 MG/5ML suspension 6.25mL day one, followed by 3mL days 2-5 18.25 mL 024 2024 Discontinued(P t. elected to discontinue med) cefdinir (OMNICEF) 250 MG/5ML suspension 7.5mL bid x 7 days 105 mL 024 2024 Discontinued(P t. elected to discontinue med) omeprazole (PRILOSEC) 40 MG capsuleIndicatio ns:Gastroesophag eal reflux disease, unspecified whether esophagitis present Take 1 capsule (40 mg total) by mouth daily. 90 capsule 3 024 2024 Discontinued(R eorder) losartan (COZAAR) 25 MG tabletIndication s:Primary hypertension Take 1 tablet (25 mg total) by mouth daily. 90 tablet 1 024 2024 Discontinued(R eorder) traZODone (DESYREL) 50 MG tabletIndication s:Insomnia, unspecified type Take 1 tablet (50 mg total) by mouth nightly at bedtime. 90 tablet 024 2024 Discontinued(R eorder) FLUoxetine (PROZAC) 20 MG tabletIndication s:Depression with anxiety Take 1 tablet (20 mg total) by mouth daily. 90 tablet 024 2024 Discontinued meloxicam (MOBIC) 7.5 MG tabletIndication s:Osteoarthritis of multiple joints, unspecified osteoarthritis type Take 1 tablet (7.5 mg total) by mouth daily. 90 tablet 024 2024 Discontinued oxybutynin XL (DITROPAN-XL) 10 MG 24 hr tabletIndication s:Urge incontinence,OAB (overactive bladder) Take 1 tablet (10 mg total) by mouth daily. 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 Regular astigmatism 10/06/2018 Hypermetropia 05/20/2015 Esophageal reflux 12/12/2011 Overview (10/02/2019): SARINA HAWKINS MD Anxiety and depression 12/12/2011 Overview (11/04/2020): Overview: SARINA HAWKINS MD SARINA HAWKINS MD Resolved Problems Problem Noted Date Diagnosed Date Resolved Date Screening for colon cancer 09/06/2023 0 09/12/2023 Screening for colon cancer 09/06/2023 0 10/31/2023 Encounters Date Type Department Care Team Description 04/20/2024 10:20 AM OXIDATION OPERATOR Office Visit [facility] Family [facility] - [place] [address] [facility], [address] [place] [address] ElsySamuel Johnson MD Follow Up (Pt presents to office for transfer of care/ med f/u ) 04/20/2024 Travel 03/09/2024 12:34 PM OXIDATION OPERATOR - 03/09/2024 11:59 PM OXIDATION OPERATOR Hospital Encounter [facility] Mammography [address] [place] [address] Annita Braun MD Discharge Disposition: Home or Self Care (Routine Discharge) 03/09/2024 Travel 03/08/2024 Scan [facility] SRV[facility] Scanned, Doc [facility] 02/29/2024 Scan [facility] INFO SRVCS Scanned, Doc Med Group 02/10/2024 10:40 AM OXIDATION OPERATOR Office Visit [facility] Multispecialty Care - [facility] [address] [place] [phone] Fadumo Sharp NP Follow Up (F/u procedure) 02/10/2024 Travel from Last 3 Months Immunizations Name Administration Dates Next Due Fluzone 6 Months+ Quad (0.5 mL Prefilled Syringe) 11/27/2021 Influenza (Generic) 12/19/2018,12/13/2017 Influenza Adult (Generic) 01/24/2021,03/2020,12/19/2018,2017,12/08/2015,12/08/2015 MODERNA COVID-19 (12+) MRNA, LNP-S, PF, 100 MCG/ 0.5 ML DOSE 07/16/2020,06/18/2020 Td 03/14/1999 Td (Tenivac) preservative free 03/14/1999 Tdap (Adacel) 09/14/2023 Family History Medical History Relation Comments Asthma Father Cancer Father Melanoma Hypertension Father ddd Father kidney [id number] Father white mater Father Breast Cancer Maternal Grandmother Alcohol Abuse Mother Asthma Paternal Grandfather Colon Cancer Paternal Grandfather Hyperlipidemia Paternal Grandfather Hypertension Paternal Grandfather bladder cancer Paternal Grandfather latosha tumor Paternal Grandfather frequent pneumonia Paternal Grandfather stomach shuts down after shanique ronny for 3 days Paternal Grandfather Arthritis Paternal Grandmother Cancer Paternal Grandmother breast, cer vical Diabetes Paternal Grandmother type 2 Heart Disease Paternal Grandmother stemi, chf, pacemaker Hyperlipidemia Paternal Grandmother Hypertension Paternal Grandmother Relation Status Comments Father Alive Maternal Grandmother Mother Paternal Grandfather Paternal Grandmother Social History Tobacco Use Types Packs/Day Years Used Date Smoking Tobacco: Former Cigarettes 1 15 0 10/01/1992 - 10/02/2007 Passive Smoke Exposure: Past Smokeless Tobacco: Never Tobacco Cessation:Counseling Given: No Comments:NO Alcohol Use Standard Drinks/Week Comments Yes 4.7 (1 standard drink = 0.6 oz p ure alcohol) 2-4 per month PHQ-2 Answer Date Recorded Patient Health Questionnaire-2 Score 0 02/10/2024 Comments No Sex and Gender Information Value Date Recorded Sex Assigned at Not on file Legal Sex Female 11:40 AM CDT Gender Identity Not on file Sexual Orientation Not on file Last Filed Vital Signs Vital Sign Reading Time Taken Comments Blood Pressure 132/78 04/20/2024 10:33 AM OXIDATION OPERATOR Pulse 73 04/20/2024 10:33 AM OXIDATION OPERATOR Temperature 36.8 C (98.3 F) 04/20/2024 10:33 AM OXIDATION OPERATOR Respiratory Rate 18 04/20/2024 10:33 AM OXIDATION OPERATOR Oxygen Saturation 99% 04/20/2024 10:33 AM OXIDATION OPERATOR Inhaled Oxygen Concentration - - Weight 122.7 kg (270 lb 8 oz) 04/20/2024 10:33 A M OXIDATION OPERATOR Height 165.1 cm (5' 5 ) 04/20/2024 10:33 AM OXIDATION OPERATOR Body Mass Index 45.01 04/20/2024 10:33 AM OXIDATION OPERATOR Plan of Treatment Health Maintenance Due Date Last Done Comments Pneumococcal Vaccine: Pediatrics (0 to 5 Years) and At-Risk Patients (6 to 64 Years) (1 of 2 - PCV) 08/02/1979 Hepatitis C 08/02/1991 Hepatitis B Vaccines (1 of 3 - 19+ 3-dose series) 1992 Cervical Cancer Screening Pap Smear (Age 30 to 64) Every 3 Years 10/20/2020 10/20/2017 Cervical Cancer Screening Pap with HPV Testing (Age 30 to 64) Every 5 Years 10/20/2022 10/20/2017, 09/11/2010 Cervical Cancer Screening with HPV 10/20/2022 Zoster Vaccines (1 of 2) 08/02/2023 COVID-19 Vaccine ( season) 2023 02/12/2022, 01/24/2021, 07/16/2020, Additional history exists Annual Physical 01/19/2024 01/18/2023, 11/27/2021 PHQ-2 (Physician [place]) 03/14/2024 02/10/2024 Mammogram Screening 03/09/2026 03/09/2024, 02/28/2023, 03/03/2021, Additional history exists DTaP, Tdap and Td Vaccines (2 - Td or Tdap) 09/13/2033 09/14/2023, 03/14/1999, 03/14/1999 Colorectal Cancer Screening Colonoscopy (10 Years) 10/26/2033 10/27/2023 Colorectal Cancer Screening FIT-DNA (3 Years) Discontinued 11/25/2020, 11/25/2020 Influenza Adult Completed 12/28/2023, 11/12, 01/24/2021, Additional history exists Meningococcal B Vaccine Aged Out No l onger eligible based on patient's age to complete this topic Meningococcal Vaccine Aged Out No isael charles eligible based on patient's age to complete this topic RSV Immunizations Under 20 Months Aged Out No longer eligible based on patient's age to complete this topic Medical Devices Implanted Type Area Plant Floor Automation Manager Device Identifier Shelf Expiration Date Model / Serial / Lot Stent Ureteral Warwick Sci Contour 6fr X 26cm - [id number] Implanted:Qty : 1 on 12/05/2020 by Chester Ashton MD at [facility] Stent Right: Ureter [employer] [id number] 10/08/2023 [id number] / / [id number] Tria Soft With Side Holes Urteral Stent Implanted:Qty : 1 on 03/24/2021 by Chester Ashton MD at [facility] Left: Ureter [id number] 11/03/2023 [id number] / / [id number] Procedures Procedure Name Priority Date/Time Associated Diagnosis Comments STREP A RAPID Routine 04/20/2024 Viral upper respiratory tract infection CORONAVIRUS (COVID-19) INFLUENZA A & B ANTIGEN IA PANEL Routine 04/20/2024 Viral upper respiratory tract infection MG SCREENING W RONNI OMAR DIGI Routine 03/09/2024 1:05 PM OXIDATION OPERATOR Encounter for screening mammogram for malignant neoplasm of breast Encounter for other screening for malignant neoplasm of breast COLOGUARD ([employer] SCIENCE) Routine 11/25/2020 7:00 AM CDT Colon cancer screening from Last 3 Months or Most Recently Relevant to Health Maintenance Results * CORONAVIRUS (COVID-19) INFLUENZA A & B ANTIGEN IA PANEL (04/20/2024) CORONAVIRUS ANTIGEN IA NEGATIVE NEGATIVE [facility] [place] [place] INFLUENZA A NEGATIVE NEGATIVE [facility] [place] [place] INFLUENZA B NEGATIVE NEGATIVE [facility] [place] [place] Internal Control: VALID VALID [facility] [place] [place] NASAL STRUCTURE / Unknown 04/20/2024 Samuel LUONG MD MICROBIOLOGY - GEN ERAL ORDERABLES Final Result [facility] [place] [place] [address] [place] [address], [place] [phone] * STREP A RAPID (04/20/2024) RAPID STREP TEST NEGATIVE NEGATIVE [facility] [place] [place] Internal Control: VALID VALID [facility] [place] [place] STRUCTURE OF ANTERIOR PORTION OF NECK / Unknown 04/20/2024 Samuel LUONG MD MICROBIOLOGY - GEN ERAL ORDERABLES Final Result [facility] [place] [place] [address] [place] [address], [place] [phone] * MG SCREENING W RONNI OMAR DIGI (03/09/2024 1:05 PM OXIDATION OPERATOR) Anatomical Region Laterality Modality Breast Bilateral Mammography 03/09/2024 1:13 PM OXIDATION OPERATOR Impressions 03/09/2024 1:23 PM OXIDATION OPERATOR IMPRESSION: No suspicious mammographic findings. Recommendation: 1. Routine Screening, Bilateral Assessment: ACR BI-RADS 1 - NEGATIVE Ordered By: ANNITA BRAUN Interpreted By: David Cardozo MD, 03/09/2024 1:13 PM Narrative 03/09/2024 1:23 PM OXIDATION OPERATOR [facility] [address] [place] [address] Examination: Screening bilateral mammogram Exam Date: 03/09/2024 12:56 PM Clinical history: Routine screening. Family history of breast cancer in her grandmother. Comparison: 02/28/2023, 03/03/2021 Technique: Digital screening mammography of both breasts was performed. Breast tomosynthesis acquisitions were obtained and reviewed. This study was read with the assistance of a computer-aided detection system. Tissue density: There are scattered areas of fibroglandular density. Findings: No suspicious masses, malignant appearing calcifications, skin thickening or other abnormalities are present. No significant change from the prior exam. us Annita Braun MD MAMMO Final Result * COLOGUARD ([employer] SCIENCE) (11/25/2020 7:00 AM CDT) COLOGUARD RESULT Negative Negative [facility] (CLIA #:[id number]) Comment: NEGATIVE TEST RESULT. A negative Cologuard result indicates a low likelihood that a colorectal cancer (CRC) or advanced adenoma (adenomatous polyps with more advanced pre-malignant features) is present. The chance that a person with a negative Cologuard test has a colorectal cancer is less than 1 in 1500 (negative predictive value >99.9%) or has an advanced adenoma is less than 5.3% (negative predictive value 94.7%). These data are based on a prospective cross-sectional study of 10,000 individuals at average risk for colorectal cancer who were screened with both Cologuard and colonoscopy. (Anup George al, N Engl J Med 2014;370(14):9112-1866) The normal value (reference range) for this assay is negative. COLOGUARD RE-SCREENING RECOMMENDATION: Periodic colorectal cancer screening is an important part of preventive healthcare for asymptomatic individuals at average risk for colorectal cancer. Following a negative Cologuard result, the Stateless Cancer Society and U.S. Multi-Society Task Force screening guidelines recommend a Cologuard re-screening interval of 3 years. References: Stateless Cancer Society Guideline for Colorectal Cancer Screening: https://www.cancer.org/cancer/qyprt-dtyaga-xlryuq/uuogeioct-jhyffmeei-sqluyby/ac s-rec ommendations.html.; Dante DK, Moriah DENISE, Daniel CottoK, Colorectal Cancer Screening: Recommendations for Physicians and Patients from the U.S. Multi-Society Task Force on Colorectal Cancer Screening , Am J Gastroenterology 2017; 112:9690-6664. TEST DESCRIPTION: Composite algorithmic analysis of stool DNA-biomarkers with hemoglobin immunoassay. Quantitative values of individual biomarkers are not reportable and are not associated with individual biomarker result reference ranges. Cologuard is intended for colorectal cancer screening of adults of either sex, 45 years or older, who are at average-risk for colorectal cancer (CRC). Cologuard has been approved for use by the U.S. FDA. The performance of Cologuard was established in a cross sectional study of average-risk adults aged 50-84. Cologuard performance in patients ages 45 to 49 years was estimated by sub-group analysis of near-age groups. Colonoscopies performed for a positive result may find as the most clinically significant lesion: colorectal cancer [4.0%], advanced adenoma (including sessile serrated polyps greater than or equal to 1cm diameter) [20%] or non- advanced adenoma [31%]; or no colorectal neoplasia [45%]. These estimates are derived from a prospective cross-sectional screening study of 10,000 individuals at average risk for colorectal cancer who were screened with both Cologuard and colonoscopy. (Anup Chamorro, N Engl J Med 2014;370(14):1444-3765.) Cologuard may produce a false negative or false positive result (no colorectal cancer or precancerous polyp present at colonoscopy follow up). A negative Cologuard test result does not guarantee the absence of CRC or advanced adenoma (pre-cancer). The current Cologuard screening interval is every 3 years. (Stateless Cancer Society and U.S. Multi-Society Task Force). Cologuard performance data in a 10,000 patient pivotal study using colonoscopy as the reference method can be accessed at the following location: www.[employer].com/results. Additional description of the Cologuard test process, warnings and precautions can be found at www.cologuard.com. Stool specimen (specimen) STOOL SPECIMEN / Unknown 11/25/2020 7:00 AM CDT 11/27/2020 3:49 PM CDT us Kathrin Shaikh MD BODY FLUIDS AND STOOLS ORDERABL ES Final Result [facility] ([employer] [address]) [address] [place] [address], [employer] (CLIA #:[id number]) [address] [place] [address] from Last 3 Months or Most Recently Relevant to Health Maintenance Insurance [address] [place] [address] Care Teams Manager Night Relationship Specialty Start Date End Date Samuel Rosario MD [address] [place] [address] PCP - General FAMILY PRACTICE 03/13/24 Brandin Berg DPM [address] [phone] [place] Investigator - Foot & Ankle Surgery 04/29/20
--- OUTSIDE RECORDS SUMMARY | 2024-04-23 08:21 | XMS_ITS | Encounter Summary ---
Author Organization [facility] Address [address] [place] [address] Care Team Providers Care Plant Control Aide Name Role Phone Kathrin Shaikh MD Primary Care Provider [phone] Brandin Berg DPM Unavailable [phone] ElsySamuel Johnson MD Primary Care Prov ider Encounter Details Date Type Department Care Team (Late st Contact Info) Description 07/01/2020 [employer]ust Message Enc [facility] Family Medicine - [place] [address] [facility], [address] [place] [phone] [place] [address] [address] Medication Questions Social History Tobacco Use Types Packs/Day Years Used Date Smoking Tobacco: Former Cigarettes Q uit: 10/02/2007 Smokeless Tobacco: Never Alcohol Use Standard Drinks/Week Comments Yes 0 (1 standard drink = 0.6 oz pur e alcohol) social PHQ-2 Answer Date Recorded PHQ-2 Score - If the patient scores above 3, please move on to questions 3-9 0 03/26/2020 Comments No Sex and Gender Information Value Date Recorded Sex Assigned at Not on file Legal Sex Female 11:40 AM CDT Gender Identity Not on file Sexual Orientation Not on file COVID-19 Exposure Response Date Recorded In the last month, have you been in contact with someone who was confirmed or suspected to have Coronavirus / COVID-19? No / Unsure 06/18/2020 7:32 AM CDT documented as of this encounter Plan of Treatment Not on file documented as of this encounter Visit Diagnoses Diagnosis Gastroesophageal reflux disease, unspecified whether esophagitis present- Primary documented in this encounter Additional Health Concerns Infection Onset Date Last Indicated Resolved Time COVID-19 Rule Out 11/02/2023 11/02/2023 11/02/2023 9:10 AM CDT COVID-19 Rule Out 04/20/2024 04/20/2024 04/20/2024 12:53 PM METAL CUTTER documented as of this encounter Care Teams Plant Control Aide Relationship Specialty Start Date End Date Kathrin Shaikh MD PCP - General FAMILY PRACTICE 10/02/19 03/12/24 Samuel Rosario MD [address] [place] [address] PCP - General FAMILY PRACTICE 03/13/24 Brandin Berg DPM [address] [phone] [employer] Specialist - Foot & Ankle Surgery 04/29/20 documented as of this encounter
--- OUTSIDE RECORDS SUMMARY | 2024-04-23 08:21 | XMS_ITS | Encounter Summary ---
Author Organization [facility] Address [address] [place] [address] Care Team Providers Care Security Installer Name Role Phone Kathrin Shaikh MD Primary Care Provider [phone] Brandin Berg DPM Unavailable [phone] ElsySamuel Johnson MD Primary Care Prov ider Encounter Details Date Type Department Care Team (Late st Contact Info) Description 05/13/2023 [facility] Message Enc [facility] Family Medicine - [place] [address] [facility] [place] [phone] [place] [phone] [address] [employer] Social History Tobacco Use Types Packs/Day Years Used Date Smoking Tobacco: Former Cigarettes 1 15 0 10/01/1992 - 10/02/2007 Smokeless Tobacco: Never Comments:NO Alcohol Use Standard Drinks/Week Comments Yes 0 (1 standard drink = 0.6 oz pur e alcohol) 2-4 per month PHQ-2 Answer Date Recorded Patient Health Questionnaire-2 Score 0 01/18/2023 Comments No Sex and Gender Information Value Date Recorded Sex Assigned at Not on file Legal Sex Female 11:40 AM CDT Gender Identity Not on file Sexual Orientation Not on file documented as of this encounter Plan of Treatment Not on file documented as of this encounter Visit Diagnoses Not on filedocumented in this encounter Additional Health Concerns Infection Onset Date Last Indicated Resolved Time COVID-19 Rule Out 11/02/2023 11/02/2023 11/02/2023 9:10 AM CDT COVID-19 Rule Out 04/20/2024 04/20/2024 04/20/2024 12:53 PM TEST ENG Assessment Noted Time PHQ-9 Depression Total Score: 0 04/06/19 10:23 AM TEST ENG documented as of this encounter Care Teams Security Installer Relationship Specialty Start Date End Date Kathrin Shaikh MD PCP - General FAMILY PRACTICE 10/02/19 03/12/24 Samuel Rosario MD [address] [place] [address] PCP - General FAMILY PRACTICE 03/13/24 Brandin Berg DPM [address] [phone] [employer] Frame Polisher - Foot & Ankle Surgery 04/29/20 documented as of this encounter
--- OUTSIDE RECORDS SUMMARY | 2024-04-23 08:21 | XMS_ITS | Encounter Summary ---
Author Organization [facility] - [facility] Address [address] [place] [address] Care Team Providers Care Control Operator Flow Coat Name Role Phone Kathrin Shaikh MD Primary Care Provider [phone] Brandin Breg DPM Unavailable [phone] ElsySamuel Johnson MD Primary Care Prov ider Encounter Details Date Type Department Care Team (Late st Contact Info) Description 12/03/2020 MyCZipRecruitert Message Enc [facility] Family Medicine - [place] [address] [facility], [address] [place] [address] [place] [address] [place] [address] cologuard Social History Tobacco Use Types Packs/Day Years Used Date Smoking Tobacco: Former Cigarettes Q uit: 10/02/2007 Smokeless Tobacco: Never Alcohol Use Standard Drinks/Week Comments Yes 0 (1 standard drink = 0.6 oz pur e alcohol) social PHQ-2 Answer Date Recorded PHQ-2 Score - If the patient scores above 3, please move on to questions 3-9 0 12/03/2020 Comments No Sex and Gender Information Value Date Recorded Sex Assigned at Not on file Legal Sex Female 11:40 AM CDT Gender Identity Not on file Sexual Orientation Not on file COVID-19 Exposure Response Date Recorded In the last month, have you been in contact with someone who was confirmed or suspected to have Coronavirus / COVID-19? No / Unsure 12/05/2020 11:57 AM CDT documented as of this encounter Plan of Treatment Not on file documented as of this encounter Visit Diagnoses Not on filedocumented in this encounter Additional Health Concerns Infection Onset Date Last Indicated Resolved Time COVID-19 Rule Out 11/02/2023 11/02/2023 11/02/2023 9:10 AM CDT COVID-19 Rule Out 04/20/2024 04/20/2024 04/20/2024 12:53 PM BUTTON SEWER HAND Assessment Noted Time PHQ-9 Depression Total Score: 0 12/04/19 11:00 AM CDT documented as of this encounter Care Teams Control Operator Flow Coat Relationship Specialty Start Date End Date Kathrin Shaikh MD PCP - General FAMILY PRACTICE 10/02/19 03/12/24 Samuel Rosario MD [address] [place] [id number] PCP - General FAMILY PRACTICE 03/13/24 Brandin Berg DPM [address] [phone] Call Or Contact Centre Team Leader - Foot & Ankle Surgery 04/29/20 documented as of this encounter
--- OUTSIDE RECORDS SUMMARY | 2024-04-23 08:21 | XMS_ITS | Encounter Summary ---
Author Organization [facility] Address [address] [place] [address] Care Team Providers Care Service Architect Name Role Phone Kathrin Shaikh MD Primary Care Provider [phone] Brandin Berg DPM Unavailable [phone] ElsySamuel Johnson MD Primary Care Prov ider Encounter Details Date Type Department Care Team (Late st Contact Info) Description 11/27/2020 Duable Chineset Message Enc [facility] Family Medicine - [place] [address] [facility], [address] [place] [id number] [place] [id number] [id number] RE: Referral Request Social History Tobacco Use Types Packs/Day Years Used Date Smoking Tobacco: Former Cigarettes Q uit: 10/02/2007 Smokeless Tobacco: Never Alcohol Use Standard Drinks/Week Comments Yes 0 (1 standard drink = 0.6 oz pur e alcohol) social PHQ-2 Answer Date Recorded PHQ-2 Score - If the patient scores above 3, please move on to questions 3-9 2 11/04/2020 Comments No Sex and Gender Information Value Date Recorded Sex Assigned at Not on file Legal Sex Female 11:40 AM CDT Gender Identity Not on file Sexual Orientation Not on file COVID-19 Exposure Response Date Recorded In the last month, have you been in contact with someone who was confirmed or suspected to have Coronavirus / COVID-19? No / Unsure 11/27/2020 5:51 PM CDT documented as of this encounter Plan of Treatment Not on file documented as of this encounter Visit Diagnoses Not on filedocumented in this encounter Additional Health Concerns Infection Onset Date Last Indicated Resolved Time COVID-19 Rule Out 11/02/2023 11/02/2023 11/02/2023 9:10 AM CDT COVID-19 Rule Out 04/20/2024 04/20/2024 04/20/2024 12:53 PM LASER PRINT OPERATOR Assessment Noted Time PHQ-9 Depression Total Score: 2 11/05/19 11:44 AM CDT documented as of this encounter Care Teams Service Architect Relationship Specialty Start Date End Date Kathrin Shaikh MD PCP - General FAMILY PRACTICE 10/02/19 03/12/24 Samuel Rosario MD [address] [place] [phone] PCP - General FAMILY PRACTICE 03/13/24 Brandin Berg DPM [address] [phone] Shelf Stocker - Foot & Ankle Surgery 04/29/20 documented as of this encounter
--- OUTSIDE RECORDS SUMMARY | 2024-04-23 08:21 | XMS_ITS | Encounter Summary ---
Author Organization [facility] Address [address] [place] [address] Care Team Providers Care Mud Tank Operator Name Role Phone Kathrin Shaikh MD Primary Care Provider [phone] Brandin Berg DPM Unavailable [phone] ElsySamuel Johnson MD Primary Care Prov ider Encounter Details Date Type Department Care Team (Late st Contact Info) Description 09/08/2022 Cell Guidance Systemst Message Enc [facility] - [facility] [address] [place] [address] [employer], [facility] Provider Air Quality Message Social History Tobacco Use Types Packs/Day Years Used Date Smoking Tobacco: Former Cigarettes 1 15 0 10/01/1992 - 10/02/2007 Smokeless Tobacco: Never Comments:NO Alcohol Use Standard Drinks/Week Comments Yes 0 (1 standard drink = 0.6 oz pur e alcohol) 2-4 per month PHQ-2 Answer Date Recorded PHQ-2 Score - If the patient scores above 3, please move on to questions 3-9 0 12/02/2021 Comments No Sex and Gender Information Value [...] Rule Out 04/20/2024 04/20/2024 04/20/2024 12:53 PM CREATIVE MANAGER Assessment Noted Time PHQ-9 Depression Total Score: 0 04/06/19 22 10:23 AM CREATIVE MANAGER documented as of this encounter Care Teams Mud Tank Operator Relationship Specialty Start Date End Date Kathrin Shaikh MD PCP - General FAMILY PRACTICE 10/02/19 03/12/24 Samuel Rosario MD [address] [place] [phone] PCP - General FAMILY PRACTICE 03/13/24 Brandin Berg DPM [address] [phone] Quill Stripper - Foot & Ankle Surgery 04/29/20 documented as of this encounter
--- OUTSIDE RECORDS SUMMARY | 2024-04-23 08:22 | XMS_ITS | Patient Health Record ---
Author Organization [facility] Address [address] [place] [address] Care Team Providers Care Quill Reamer Name Role Phone Bonita Zuñiga Unavailable [phone] Facundo Gimenez Unavailable [phone] [employer], Provider Unavailable Unavailab le Allergies Allergen (clinical drug ingredient) Drug/Non Drug Allergy documented on EMR Reaction Allergy Type Onset Date Status Sulfamethoxazole unknown reaction Drug Allergy Active Results Component Value Reference Range Notes Spirometry Reviewed date:06/23/2023 02:11:54 PM Interpretation:Normal Performing Lab: Notes/Report: Normal SpiroPreBronchodilator_FVC 3.97 SpiroPostBronchodilator_FEF25_75 0 SpiroPreBronchodilator_FEF25_75 2.77 SpiroPreBronchodilator_FEV1 3.25 SpiroPrecentPredictionPost_FEF25_75 0 SpiroPrecentPredictionPost_FEV1 0 SpiroPrecentPredictionPost_FEV1_OVER_FVC 0 SpiroPrecentPredictionPost_FVC 0 SpiroPrecentPredictionPre_FEF25_75 96.9 SpiroPrecentPredictionPre_FEV1 111.3 SpiroPrecentPredictionPre_FEV1_OVER_FVC 101.8 SpiroPrecentPredictionPre_FVC 107.9 SpiroPredicted_FEF25_75 2.86 SpiroPreBronchodilator_FEV1_OVER_FVC 81.88 SpiroPreBronchodilator_PEF 7.92 SpiroPostBronchodilator_FVC 0 SpiroPostBronchodilator_FEV1 0 SpiroPostBronchodilator_FEV1_OVER_FVC 0 SpiroPostBronchodilator_PEF 0 SpiroPredicted_FVC 3.68 SpiroPredicted_FEV1 2.92 SpiroPredicted_FEV1_OVER_FVC 80.4 SpiroPredicted_PEF 6.92 Reason For Referral No Information Medications Medication SIG (Take, Route, Frequency, Duration) Notes Start Date End Date Status OXYBUTYNIN 5 mg/24 hours 1 tab(s) orally once a day for 30 day(s) Active OMEPRAZOLE 40 mg 1 cap(s) orally once a day Active MELOXICAM 7.5 mg 1 tab(s) orally once a day for 30 day(s) Active ADVAIR HFA CFC free 115 mcg-21 mcg/inh inhale 2 puffs by mouth twice daily with spacer inhaled 2 times a day for 90 days Active Fluticasone Propionate 50 MCG/ACT 1 spray(s) in each nostril twice a day for 90 days 06/23/2023 Active SLYND 4 mg 1 tab(s) orally once a day Active ZYRTEC 10 mg 1 tab(s) orally once a day for 90 days Active Azelastine HCl 137 MCG/SPRAY 2 spray(s) intranasally 2 times a day for 30 days Not-Taking AUVI -Q 0.3 mg as directed intramuscularly once for 30 day(s) Active Wixela Inhub 250 MCG-50 MCG 1 INH INHALED 2 TIMES A DAY for 30 DAYS *Please review and pick correct strength-formulat ion from [employer] options. If intended option is not shown, discontinue and re-order from Quick Search* 06/23/2023 Active EPINASTINE OPHTHALMIC 0.05% 1 gtt in each affected eye 2 times a day for 90 days Active Advair HFA 115 MCG-21 MCG USE 2 INHALATIONS ORALLY TWICE DAILY WITH SPACER (NEED FOLLOW-UP FOR FURTHERREFILLS) for 90 *Please review and pick correct strength-formulat ion from [employer] options. If intended option is not shown, discontinue and re-order from Quick Search* Active SINGULAIR 10 mg 1 tab(s) orally once a day for 90 days Active Fluticasone Propionate 50 MCG/ACT 1 spray(s) in each nostril once a day for 90 days 03/15/2023 Not-Taking Singulair 10 MG 1 tab(s) orally once a day for 90 days needs follow-up for more refills Not-Taking BACLOFEN 5 mg 1.5 tab(s) orally Qday Active Flonase Allergy Relief 50 MCG/ACT 1 spray(s) intranasally once a day for 90 days Not-Taking EpiPen 2-Julian 0.3 MG/0.3ML as directed intramuscularly once Active Flonase Allergy Relief 50 MCG/ACT 1 spray(s) intranasally once a day for 90 days Active Losartan Potassium 25 MG 1 tab(s) orally once a day for 30 day(s) Active AZELASTINE NASAL 137 mcg/inh 2 spray(s) intranasally 2 times a day for 30 days Not-Taking WIXELA INHUB 250 mcg-50 mcg 1 INH inhaled 2 times a day for 30 days 06/23/2023 Active ADVAIR HFA 115 mcg-21 [...] once a day for 90 days Not-Taking EPIPEN 2-JULIAN 0.3 mg as directed intramuscularly once Active FLONASE 50 mcg/inh 1 spray(s) intranasally once a day for 90 days Active PROZAC 20 mg 1 cap(s) orally once a day for 30 day(s) Active LOSARTAN 25 mg 1 tab(s) orally once a day for 30 day(s) Active Azelastine HCl 137 MCG/SPRAY 2 spray(s) intranasally 2 times a day for 30 days Active PROVENTIL (ALBUTEROL) HFA 90 MCG/INH 2 PUFF(S) INHALED EVERY 4-6 HOURS for 30 DAYS *Please review for potential replacement for e-prescription and drug interaction check* Active Montelukast Sodium 10 MG TAKE 1 TABLET DAILY for 90 Active Epinastine HCl 0.05 % 1 gtt in each affected eye 2 times a day for 90 days Active Azurette 0.15-0.02/0.01 MG (01/08) 1 tab(s) [...] a day for 90 days 06/23/2023 Active TRAZODONE 50 mg 1 tab(s) orally Qday Active AZURETTE biphasic 1 tab(s) orally once a day Active NABUMETONE 500 mg 2 tab(s) orally once a day Active PROTONIX 40 mg 1 tab(s) orally once a day Active oxyBUTYnin Chloride ER 5 MG 1 tab(s) orally once a day for 30 day(s) Active TRAMADOL 50 mg 1 tab(s) orally ever y 6 hours Active PROzac 20 MG 1 cap(s) orally [...] 1 tab(s) orally once a day Active Auvi-Q 0.3 MG/0.3ML as directed intramuscularly once for 30 day(s) Active AEROCHAMBER MDI SPACER [...] for e-prescription and drug interaction check* Active Immunizations Vaccine Route Administration Date Status Comme nts NOC Flucelevax Quadrivalent Unknown 03/14/2020 Administered Allergy Immunotherapy Weekly Unknown 2019 Administered Portal Informati on Social History Tobacco Use: Social History Observation Description Date Details (start date - stop date) Former Smoker NA - NA Smoking Smart Form: Question Answer Notes Are you a: former smoker How long it has been since you last smoked? > 10 years Tobacco Control (Standard) Question Answer Notes Tobacco use: Former smoker Problems Problem Type SNOMED Code ICD Code Onset Dates Problem Status W/U Status Risk Notes Problem Chronic allergic conjunctivitis (03880162) Other chronic allergic conjunctivitis (H10.45) Active confirmed Problem Allergic rhinitis caused by pollen (disorder) (68586392) Allergic rhinitis due to pollen (J30.1) Active confirmed Problem Allergic rhinitis caused by animal hair and dander (815675084938615) Allergic rhinitis due to animal (cat) (dog) hair and dander (J30.81) Active confirmed Problem Allergic rhinitis (42888607) Other allergic rhinitis (J30.89) Active confirmed Problem Allergic rhinitis caused by pollen (disorder) (32699112) Allergic rhinitis due to pollen (J30.1) Active confirmed Problem Allergic rhinitis caused by animal hair and dander (116097650735233) Allergic rhinitis due to animal (cat) (dog) hair and dander (J30.81) Active confirmed Problem Allergic rhinitis (34912343) Other allergic rhinitis (J30.89) Active confirmed Problem Uncomplicated mild persistent asthma (562846150) Mild persistent asthma, uncomplicated (J45.30) Active confirmed Problem Chronic allergic conjunctivitis (25031111) Other chronic allergic conjunctivitis (H10.45) Active confirmed Problem Allergy to sulfonamides (13181714) Allergy status to sulfonamides status (Z88.2) Active confirmed Vital Signs Respiratory Rate 18 /min 06/23/2023 Oximetry 99 % 06/23/2023 Blood pressure diastolic 80 mm Hg 06/23/2023 Height 65 in 06/23/2023 Blood pressure systolic 117 mm Hg 06/23/2023 Weight 259.4 lbs 06/23/2023 BMI 43.16 kg/m2 06/23/2023 Encounters Encounter Location Date Provider Diagnosis [address] [phone] 08/27/2023 Provider [facility] [address] [facility] [address] [place] [address] 05/02/2023 Facundo Gimenez Allergic rhinitis du e to pollen J30.1 ; Other allergic rhinitis J30.89 ; Allergic rhinitis due to animal (cat) (dog) hair and dander J30.81 and Other chronic allergic conjunctivitis H10.45 [facility] [address] [place] [phone] 05/19/2023 Bonita Zuñiga [facility] [address] [place] [phone] 05/23/2023 Facundo Gimenez Allergic rhinitis du e to pollen J30.1 ; Other allergic rhinitis J30.89 ; Allergic rhinitis due to animal (cat) (dog) hair and dander J30.81 and Other chronic allergic conjunctivitis H10.45 [facility] [address] [place] [phone] 06/23/2023 Bonita Yogesh Other allergic rhinitis J30.89 ; Allergic rhinitis due to pollen J30.1 ; Allergic rhinitis due to animal (cat) (dog) hair and dander J30.81 ; Other chronic allergic conjunctivitis H10.45 ; Mild persistent asthma, uncomplicated J45.30 and Elevated blood-pressure reading, without diagnosis of hypertension R03.0 [facility] [address] [place] [phone] 07/21/2023 Facundo Gimenez Allergic rhinitis du e to pollen J30.1 ; Other allergic rhinitis J30.89 ; Allergic rhinitis due to animal (cat) (dog) hair and dander J30.81 and Other chronic allergic conjunctivitis H10.45 [facility] [address] [place] [phone] 08/18/2023 Facundo Gimenez Allergic rhinitis du e to pollen J30.1 ; Other allergic rhinitis J30.89 ; Allergic rhinitis due to animal (cat) (dog) hair and dander J30.81 and Other chronic allergic conjunctivitis H10.45 [facility] [address] [place] [phone] 09/22/2023 Facundo Gimenez Allergic rhinitis du e to pollen J30.1 ; Other allergic rhinitis J30.89 ; Allergic rhinitis due to animal (cat) (dog) hair and dander J30.81 and Other chronic allergic conjunctivitis H10.45 [facility] [address] [place] [phone] 11/17/2023 Facundo Gimenez Allergic rhinitis du e to pollen J30.1 ; Other allergic rhinitis J30.89 ; Allergic rhinitis due to animal (cat) (dog) hair and dander J30.81 and Other chronic allergic conjunctivitis H10.45 [facility] [address] [place] [address] [facility] [employer] [address] [address] 11/24/2023 Facundo Gimenez Allergic rhinitis du e to pollen J30.1 ; Other allergic rhinitis J30.89 ; Allergic rhinitis due to animal (cat) (dog) hair and dander J30.81 and Other chronic allergic conjunctivitis H10.45 [facility] [address] [place] [address] [employer] [address] [place] [phone] 12/22/2023 Facundo Gimenez Allergic rhinitis du e to pollen J30.1 ; Other allergic rhinitis J30.89 ; Allergic rhinitis due to animal (cat) (dog) hair and dander J30.81 and Other chronic allergic conjunctivitis H10.45 [facility] [address] [place] [address] [employer] [address] [place] [phone] 01/26/2024 Facundo Gimenez Allergic rhinitis du e to pollen J30.1 ; Other allergic rhinitis J30.89 ; Allergic rhinitis due to animal (cat) (dog) hair and dander J30.81 and Other chronic allergic conjunctivitis H10.45 [facility] [address] [place] [address] [employer] [address] [place] [phone] 03/29/2024 Facundo Gimenez Allergic rhinitis du e to pollen J30.1 ; Other allergic rhinitis J30.89 ; Allergic rhinitis due to animal (cat) (dog) hair and dander J30.81 and Other chronic allergic conjunctivitis H10.45 [facility] [address] [place], [place] [address] [address] [place] [phone] 04/02/2024 Facundo Gimenez Allergic rhinitis du e to pollen J30.1 ; Other allergic rhinitis J30.89 ; Allergic rhinitis due to animal (cat) (dog) hair and dander J30.81 and Other chronic allergic conjunctivitis H10.45 [facility] [address] [place], [place] [address] [address] [place] [phone] 04/12/2024 Facundo Pernell Allergic rhinitis du e to pollen J30.1 ; Other allergic rhinitis J30.89 ; Allergic rhinitis due to animal (cat) (dog) hair and dander J30.81 and Other chronic allergic conjunctivitis H10.[address] [address] 05/03/2023 Bonita Zuñiga [address] [phone] 08/10/2023 Bonita Zuñiga Other allergic rhinitis J30.[address] [phone] 08/18/2023 Bonita Zuñiga [address] [address] 01/30/2024 Bonita Zuñiga Other allergic rhinitis J30.89 Assessments Encounter Date Diagnosis (ICD Code) Assessment Notes Treatment Notes Treatment Clinical Notes Section Notes 05/02/2023 Allergic rhinitis due to pollen (ICD-10 - J30.1) 05/23/2023 Allergic rhinitis due to pollen (ICD-10 - J30.1) 06/23/2023 Allergic rhinitis due to pollen (ICD-10 - J30.1) Follow allergen avoidance, meds and SCIT per schedule. 06/23/2023 Other allergic rhinitis (ICD-10 - J30.89) History of positive skin testing to mold, pollens, dust, cat and dog. On SCIT x about 10 years-2 vials. After relocating here, SPT was updated showing additional aeroallergens; SCIT reformulted. Continues avoidance measures and medications as above. S/P SCIT via rapid desensitization with reformulated vials which he has since completed. Now on MM which was tolerated today without local or systemic reaction. She reprots recurrent sporadic episodes of sinus congestion. Only using Floanse daily so advised increase to BID. Otherwise consdier increaing SCIT frequency. If issues persist consider checking in with ENT 07/21/2023 Allergic rhinitis due to pollen (ICD-10 - J30.1) 08/10/2023 Other allergic rhinitis (ICD-10 - J30.89) 08/18/2023 Allergic rhinitis due to pollen (ICD-10 - J30.1) 09/22/2023 Allergic rhinitis due to pollen (ICD-10 - J30.1) 11/17/2023 Allergic rhinitis due to pollen (ICD-10 - J30.1) 11/24/2023 Allergic rhinitis due to pollen (ICD-10 - J30.1) 12/22/2023 Allergic rhinitis due to pollen (ICD-10 - J30.1) 01/26/2024 Allergic rhinitis due to pollen (ICD-10 - J30.1) 01/30/2024 Other allergic rhinitis (ICD-10 - J30.89) 03/29/2024 Allergic rhinitis due to pollen (ICD-10 - J30.1) 04/02/2024 Allergic rhinitis due to pollen (ICD-10 - J30.1) 04/12/2024 Allergic rhinitis due to pollen (ICD-10 - J30.1) 04/02/2024 Other allergic rhinitis (ICD-10 - J30.89) 04/12/2024 Other allergic rhinitis (ICD-10 - J30.89) 03/29/2024 Other allergic rhinitis (ICD-10 - J30.89) 01/26/2024 Other allergic rhinitis (ICD-10 - J30.89) 12/22/2023 Other allergic rhinitis (ICD-10 - J30.89) 11/24/2023 Other allergic rhinitis (ICD-10 - J30.89) 11/17/2023 Other allergic rhinitis (ICD-10 - J30.89) 09/22/2023 Other allergic rhinitis (ICD-10 - J30.89) 08/18/2023 Other allergic rhinitis (ICD-10 - J30.89) 07/21/2023 Other allergic rhinitis (ICD-10 - J30.89) 06/23/2023 Allergic rhinitis due to animal (cat) (dog) hair and dander (ICD-10 - J30.81) Follow allergen avoidance, meds and SCIT per schedule. 05/23/2023 Other allergic rhinitis (ICD-10 - J30.89) 05/02/2023 Other allergic rhinitis (ICD-10 - J30.89) 05/02/2023 Allergic rhinitis due to animal (cat) (dog) hair and dander (ICD-10 - J30.81) 05/23/2023 Allergic rhinitis due to animal (cat) (dog) hair and dander (ICD-10 - J30.81) 06/23/2023 Other chronic allergic conjunctivitis (ICD-10 - H10.45) Given ocular signs and symptoms I encouraged allergy avoidance measures and meds as above 07/21/2023 Allergic rhinitis due to animal (cat) (dog) hair and dander (ICD-10 - J30.81) 08/18/2023 Allergic rhinitis due to animal (cat) (dog) hair and dander (ICD-10 - J30.81) 09/22/2023 Allergic rhinitis due to animal (cat) (dog) hair and dander (ICD-10 - J30.81) 11/17/2023 Allergic rhinitis due to animal (cat) (dog) hair and dander (ICD-10 - J30.81) 11/24/2023 Allergic rhinitis due to animal (cat) (dog) hair and dander (ICD-10 - J30.81) 12/22/2023 Allergic rhinitis due to animal (cat) (dog) hair and dander (ICD-10 - J30.81) 01/26/2024 Allergic rhinitis due to animal (cat) (dog) hair and dander (ICD-10 - J30.81) 03/29/2024 Allergic rhinitis due to animal (cat) (dog) hair and dander (ICD-10 - J30.81) 04/02/2024 Allergic rhinitis due to animal (cat) (dog) hair and dander (ICD-10 - J30.81) 04/12/2024 Allergic rhinitis due to animal (cat) (dog) hair and dander (ICD-10 - J30.81) 04/12/2024 Other chronic allergic conjunctivitis (ICD-10 - H10.45) 04/02/2024 Other chronic allergic conjunctivitis (ICD-10 - H10.45) 03/29/2024 Other chronic allergic conjunctivitis (ICD-10 - H10.45) 01/26/2024 Other chronic allergic conjunctivitis (ICD-10 - H10.45) 12/22/2023 Other chronic allergic conjunctivitis (ICD-10 - H10.45) 11/24/2023 Other chronic allergic conjunctivitis (ICD-10 - H10.45) 11/17/2023 Other chronic allergic conjunctivitis (ICD-10 - H10.45) 09/22/2023 Other chronic allergic conjunctivitis (ICD-10 - H10.45) 08/18/2023 Other chronic allergic conjunctivitis (ICD-10 - H10.45) 07/21/2023 Other chronic allergic conjunctivitis (ICD-10 - H10.45) 06/23/2023 Mild persistent asthma, uncomplicated (ICD-10 - J45.30) Asthma typically well controlled with seasonal use of Advair. Historically only with symptoms in Fall, she again had a URI triggering coughing and wheezing. She is using NEENA with relief and has since resumed Advair. Spirometry was normal last visit Currently on daily Advair,will change to Wixela due to insurance request. Rinse out mouth after use. Spirometry today is normal 05/23/2023 Other chronic allergic conjunctivitis (ICD-10 - H10.45) 05/02/2023 Other chronic allergic conjunctivitis (ICD-10 - H10.45) 06/23/2023 Elevated blood-pressure reading, without diagnosis of hypertension (ICD-10 - R03.0) BP elevated today without symptoms of urgency or emergency. Continue serial checks and follow-up with PCP 06/23/2023 Other Plan Of Treatment Next Appt Details Provider Name:Facundo KarolCornelius Gimenez , 05/03/2024 04:30:00 PM, [address] [facility] [employer], [address], [phone], Provider Name:Facundo HCornelius Gimenez , 05/31/2024 07:40:00 AM, 2022 [facility] [employer] [facility], [address], [address], Insurance Providers Payer Name Payer Address Payer Phone Subscriber Number Group Number Insured Name Patient Relationship to Insured Coverage Start Date Coverage End Date Shelley [address] [place] [address] [id number] Fadumo Brock Self - patient is the insured Medical (General) History Medical History History ICD Code Enthesopathy, unspecified M77.9 Calculus of kidney N20.0 Gastro-esophageal reflux disease without esophagitis K21.9 Other specified arthritis, unspecified s ite M13.80 Mild persistent asthma, uncomplicated J4 5.30 Other allergic rhinitis J30.89 Other chronic allergic conjunctivitis H1 0.45 Allergic rhinitis due to animal (cat) (d og) hair and dander J30.81 Allergic rhinitis due to pollen J30.1 Surgical History Surgery Date(Month/Year) Cyst Removal [place] Teeth Kidney Stones
--- NOTE | 2024-04-23 08:24 | ED.URI ---
HPI - URI/Sore Throat General Chief Complaint: Upper Respiratory Infection Stated Complaint: coughing Time Seen by Provider: 04/23/24 08:24 Source: patient Mode of arrival: ambulatory Limitations: no limitations History of Present Illness HPI Narrative: 48-year-old female with history of asthma presents with complaint of cough, chest congestion, shortness of breath with exertion for the past 5 days. Patient seen by her primary care physician 5 days ago and negative COVID, influenza and strep test. Patient reports that she has pneumonia twice since October. No respiratory distress noted. All Systems reviewed and negative except as noted above. Related Data Home Medications ?Medication ?Instructions ?Recorded ?Confirmed ?Last Taken ?Type albuterol sulfate 90 mcg/actuation inhalation 02/29/24 Unknown History aerosol inhaler azelastine 137 mcg (0.1 %) nasal intranasal 02/29/24 Unknown History spray baclofen 10 mg tablet mg 02/29/24 Unknown History drospirenone (contraceptive) 4 mg 02/29/24 Unknown History (28) tablet (Slynd) fluoxetine 20 mg tablet mg 02/29/24 Unknown History fluticasone propionate 50 intranasal 02/29/24 Unknown History mcg/actuation nasal spray,suspension losartan 25 mg tablet mg 02/29/24 Unknown History meloxicam 7.5 mg tablet mg 02/29/24 Unknown History montelukast 10 mg tablet mg 02/29/24 Unknown History omeprazole 40 mg capsule,delayed mg 02/29/24 Unknown History release oxybutynin chloride 10 mg mg PO 02/29/24 Unknown History tablet,extended release 24 hr trazodone 50 mg tablet mg 02/29/24 Unknown History Allergies Allergy/AdvReac Type Severity Reaction Status Date / Time Sulfa (Sulfonamide Allergy Mild rash Verified 04/23/24 08:22 Antibiotics) Review of Systems Review of Systems: CONSTITUTIONAL: Denies fever, chills, or sweats. reports fatigue. EYES: Denies visual changes, redness, or discharge. ENT: Reports rhinorrhea, congestion. Denies sore throat, or otalgia. CARDIOVASCULAR: Denies chest pain, palpitations, or edema. RESPIRATORY: reports cough, intermittent wheezing and dyspnea with exertion. GASTROINTESTINAL: Denies abdominal pain, nausea, vomiting, or diarrhea. GENITOURINARY: Denies dysuria or hematuria. SKIN: Denies rash or itching. MUSCULOSKELETAL: Denies back pain, joint pain, or myalgia. NEUROLOGIC: Denies headache, numbness, or weakness. PSYCHIATRIC: Denies anxiety or depression. All other systems reviewed are negative, except as documented in HPI. PMFSH Comments At time of signature, agree with nursing past medical, surgical, social and family history. There is no relevant family history pertinent to the presenting complaint. Exam Narrative: GENERAL: This is a well-nourished, well-developed patient, ill-appearing but in no acute distress HEAD: normocephalic, atraumatic. EYES: PERRL. Sclera clear/white. Vision is grossly intact. EARS: External ears normal, auditory canals clear and without drainage, TMs normal without perforation. Hearing grossly intact. NOSE: External nose normal with no obvious nasal discharge, nares without redness, no rhinorrhea. THROAT: Mucous membranes moist, posterior pharynx clear. NECK: Neck supple, non-tender without lymphadenopathy, masses or thyromegaly. CARDIOVASCULAR: Regular rate and rhythm without murmurs, gallops, or rubs. RESPIRATORY: decreased to bilateral lower lung ann otherwise clear. Breath sounds equal bilaterally. No wheezes, rales, or rhonchi. SKIN: warm, Dry, intact with no suspicious lesions or rash, good texture and turgor. NEURO: awake, alert, and oriented to person, place and time. There were no obvious focal neurologic abnormalities. EXTREMITIES: No joint tenderness, effusion, or edema noted. Course Course Level of Care: Express Care Visit Vital Signs Vital signs: Vital Signs Temperature 36.6 C 04/23/24 08:21 Pulse Rate 85 04/23/24 08:21 Respiratory Rate 18 04/23/24 08:21 Blood Pressure 144/82 H 04/23/24 08:21 Pulse Oximetry 98 04/23/24 08:21 Oxygen Delivery Room Air 04/23/24 08:21 Temperature 36.6 C 04/23/24 08:21 Pulse Rate 85 04/23/24 08:21 Respiratory Rate 18 04/23/24 08:21 Blood Pressure 144/82 H 04/23/24 08:21 Pulse Oximetry 98 04/23/24 08:21 Oxygen Delivery Room Air 04/23/24 08:21 Reviewed MDM - URI/Sore Throat MDM Narrative Medical decision making narrative: will treat patient with antibiotic for pneumonia due to patient's symptoms and exam findings. Patient was offered a chest x-ray today and she did not feel was necessary. Patient is alert, nontoxic. Please be advised this is a medical document. It is intended for [id number] communication. It is written in medical language and may contain unfamiliar abbreviations or verbiage. Medical documents are intended to carry relevant information, facts as evident, and the clinical opinion of the practitioner at the time of the encounter. This report may have been done utilizing a voice recognition system. Attempts have been made to correct errors. However, there may be uncorrected grammatical, spelling, and recognition errors present. The file time of this note does not necessarily represent the time of service. Differential Diagnosis Differential diagnosis: Likely upper respiratory infection, sinusitis, viral infection, influenza and other ( Pneumonia) Discharge Plan Discharge Clinical Impression: Pneumonia Patient Disposition: Home, Self-Care Condition: Stable Instructions: Antibiotic Form, Pneumonia (ED) Additional Instructions: Take medications as prescribed. Continue using inhalers as prescribed by your doctor. Drink at least 64 ounces of water a day. See your doctor if symptoms not improving. Patient Language: Bangladeshi Prescriptions: New doxycycline hyclate 100 mg capsule 100 mg PO BID 7 Days Qty: 14 0RF prednisone 20 mg tablet 40 mg PO DAILY 5 Days Qty: 10 0RF No Action trazodone 50 mg tablet oxybutynin chloride 10 mg tablet extended release 24hr PO omeprazole 40 mg capsule,delayed release(DR/EC) meloxicam 7.5 mg tablet baclofen 10 mg tablet fluoxetine 20 mg tablet losartan 25 mg tablet montelukast 10 mg tablet azelastine 137 mcg (0.1 %) spray,non-aerosol INTRANASAL albuterol sulfate 90 mcg/actuation HFA aerosol inhaler INHALATION fluticasone propionate 50 mcg/actuation spray,suspension INTRANASAL Slynd 4 mg (28) tablet penicillin V potassium 500 mg tablet 500 mg PO Q12H 10 Days Qty: 20 0RF azithromycin 250 mg tablet See Rx Instructions PO .COMPLEX Qty: 6 0RF Rx Instructions: For 250 mg dose pack: take 500 mg today (day 1), then 250 mg for 4 days (days 2-5) prednisone 50 mg tablet 50 mg PO DAILY Qty: 5 0RF Follow-up/Referrals: Elsy,Marcus Lane MD [Primary Care Provider] - Stand Alone Forms: Work/School Release IP Time of Disposition: 08:41
== END 2024-04-23 08:45 | disposition home or self-care (01) ==
PROVIDERS: Emergency Provider Nurse Practitioner Family; PCP Family Medicine
DX: J18.9 Pneumonia, unspecified organism (principal); J45.909 Unspecified asthma, uncomplicated; I10 Essential (primary) hypertension; E78.00 Pure hypercholesterolemia, unspecified; K21.9 Gastro-esophageal reflux disease without esophagitis; M19.90 Unspecified osteoarthritis, unspecified site
CPT/HCPCS: 99213; G0463